=== PATIENT | female | born 1975 | race American Indian/Alaskan Native ===

== ENCOUNTER 2016-09-03 16:54 | Emergency (ER) | payer MEDICAID ==
[2016-09-03] MEDS ORDERED: KEPPRA 1,000 MG/NS 0.75% 100ML 1,000 MG/100 ML BAG IV ONE (20:29)
[2016-09-03] MEDS ORDERED: PERCOCET 5/325 PO ONE (20:33)
--- NOTE | 2016-09-03 20:37 | Emergency Department Report ---
HPI - General Chief Complaint: Seizure Time Seen by Provider: 09/03/16 20:20 - HPI HPI: This is a 40-year-old -[place] female presents to the emergency department from home through triage with complaint of a seizure last night and then again today. Patient also complains of severe bilateral knee pain as she has a history of bilateral knee replacement last month and says that she fell onto her knees outside of triage. The patient presents with elevated blood pressure but says she is taking medications for it. She is not currently on any seizure medications. The patient was recently admitted and discharged from [facility] for hypertensive issues along with bradycardia. She was discharged 6 days ago. Patient has a history of arthritis, hypertension, lupus. She is also complaining of some other chronic pains. ED Past Medical Hx - Past Medical History Hx Hypertension: Yes Hx Arthritis: Yes Additional medical history: LUPUS - Surgical History Hx Cholecystectomy: Yes Additional Surgical History: Gastric bypass, Hysterectomy. breast reduction - Social History Smoking Status: Current Every Day Smoker Substance Use Type: None - Medications Home Medications: Home Medications Medication Instructions Recorded Confirmed Last Taken Type Butalb/Acetamin/Caff 50-325-40 2 tab PO Q4H PRN #20 tablet 08/29/16 Unknown Rx [Fioricet] Famotidine [Pepcid] 20 mg PO BID #60 tablet 08/29/16 Unknown Rx Levofloxacin [Levaquin TAB] 750 mg PO Q24H #4 tablet 08/29/16 Unknown Rx Losartan [Cozaar] 25 mg PO QDAY #30 tablet 08/29/16 Unknown Rx NIFEdipine XL [Procardia Xl] 60 mg PO QDAY #30 tablet 08/29/16 Unknown Rx Oxycodone HCl/Acetaminophen 1 each PO Q6HR PRN #12 tablet 08/29/16 Unknown Rx [Percocet 7.5/325 mg] Sertraline [Zoloft] 50 mg PO QDAY #30 tablet 08/29/16 Unknown Rx predniSONE [Deltasone] 40 mg PO QDAY #60 tablet 08/29/16 Unknown Rx levETIRAcetam [Keppra TAB] 500 mg PO BID #60 tablet 09/04/16 Unknown Rx oxyCODONE /ACETAMINOPHEN [Percocet 1 tab PO Q6HR PRN #10 tablet 09/04/16 Unknown Rx 5/325] ED Review of Systems ROS: Stated complaint: HBP/LOW HEART RATE Other details as noted in HPI Comment: All other systems reviewed and negative Constitutional: denies: chills, fever Eyes: denies: eye pain, eye discharge, vision change ENT: denies: ear pain, throat pain Respiratory: denies: cough, shortness of breath, wheezing Cardiovascular: denies: chest pain, palpitations Gastrointestinal: denies: abdominal pain, nausea, diarrhea Genitourinary: denies: urgency, dysuria, discharge Musculoskeletal: arthralgia. denies: back pain Skin: denies: rash, lesions Neurological: headache, other (seizures). denies: numbness, paresthesias Physical Exam - Physical Exam Vital Signs: Vital Signs 09/03/16 17:13 Temperature 99.2 F Pulse Rate 100 H Respiratory 20 Rate Blood Pressure 160/116 O2 Sat by Pulse 100 Oximetry Physical Exam: GENERAL: The patient is well-developed well-nourished. Patient is awake and does not appear in any acute distress. HEENT: Normocephalic. Atraumatic. Extraocular motions are intact. Patient has moist mucous membranes. Pupils equal reactive to light bilaterally. No nystagmus. NECK: Supple. Trach is midline. CHEST/LUNGS: Clear to auscultation. There is no respiratory distress noted. HEART/CARDIOVASCULAR: Regular. There is no tachycardia. There is no gallop rub or murmur. ABDOMEN: Abdomen is soft, nontender. Patient has normal bowel sounds. There is no abdominal distention. SKIN: There is no rash. There is no edema. There is no diaphoresis. NEURO: The patient is awake, alert, and oriented. The patient is cooperative. The patient has no focal neurologic deficits. The patient has normal speech. Cranial nerves II through XII grossly intact. MUSCULOSKELETAL: There is tenderness to palpation to the bilateral knees but no obvious deformity. Negative anterior and posterior drawer test both knees. No laxity with valgus or varus stress. There is no limitation range of motion. ED Course Vital Signs 09/03/16 17:13 Temperature 99.2 F Pulse Rate 100 H Respiratory 20 Rate Blood Pressure 160/116 O2 Sat by Pulse 100 Oximetry ED Medical Decision Making - Lab Data Result diagrams: 09/03/16 20:39 09/03/16 20:39 - EKG Data -: EKG Interpreted by Me EKG shows normal: sinus rhythm, axis, intervals, QRS complexes (LVH), ST-T waves (T-wave inversions to the anterior leads) Rate: normal - EKG Data When compared to previous EKG there are: changes noted (previous EKG had marked sinus bradycardia) Interpretation: LVH, other (T-wave inversions to the anterior leads) - Radiology Data Radiology results: image reviewed interpreted by me: X-ray of the bilateral knees shows no fracture, dislocation or any acute process. - Medical Decision Making This is a 40-year-old female who presents to the emergency with complaint of a seizure the night prior to presentation and one the morning of presentation. She also says that she fell outside at triage and hit both her knees which had been half replaced the month prior. The patient's labs are mostly unremarkable except for a leukocytosis of 16,000. However the patient appears to have chronic elevation of white blood cell count is this is consistent with her previous visits. Her Depakote level was very low and subtherapeutic but the patient told me that she was stopped on the medication, despite what it says through the triage notes. I loaded the patient with some Keppra. She was given some of her pain from her knees and x-rays were done. There is no fracture, dislocation or any acute process. The patient was reevaluated multiple times for multiple hours and spent many hours in the emergency department without any further seizure-like activity. She did present with some very elevated blood pressure but came down to a reasonable level with one or 2 doses of antihypertensives and some pain control. The patient was often seen resting comfortably in the [facility] but continued to ask if she could be admitted solely for observational purposes. However the patient has a seizure history, and no further seizures today. She has access to a neurologist regarding her epilepsy. She has access to a orthopedist regarding her knee pain and she has a primary care physician. She was given something for pain and Keppra for seizures. She was having. She'll return to the emergency department with any further seizure-like activity or any worsening of her symptoms or any acute distress. Prior to discharge, the patient was seen ambulatory in the emergency department and appeared stable and doing so. The patient had a CT of the head within a week of this presentation and with only one seizure the day of presentation, I did not feel that further CT imaging of the head was necessary. Critical Care Time: No Critical care attestation.: If time is entered above; I have spent that time in minutes in the direct care of this critically ill patient, excluding procedure time. ED Disposition Clinical Impression: Arthralgia of both knees, Seizures Hypertension Qualifiers: Hypertension type: essential hypertension Qualified Code(s): I10 - Essential ( primary) hypertension Lupus Qualifiers: Systemic lupus erythematosus type: unspecified Systemic lupus erythematosus organ involvement: unspecified Qualified Code(s): M32.9 - Systemic lupus erythematosus, unspecified Fall Qualifiers: Encounter type: initial encounter Qualified Code(s): W19.XXXA - Unspecified fall, initial encounter Disposition: DISCHARGED TO HOME OR SELFCARE Is pt being admited?: No Condition: Stable Instructions: Epilepsy (ED), Hypertension (ED), Arthralgia (ED) Additional Instructions: Please follow-up with Dr. pSence in the next 1-2 days without fail. It is also recommended that she follow-up with your neurologist. It is recommended that she follow up with your orthopedist regarding your knee pain and recent fall. Return to the emergency department with any worsening of your symptoms or any acute distress. Try to stay away from foods that are high in salt caffeinated products to help with her blood pressure. You've been prescribed a medication that is sedating. Therefore this medication cannot be mixed with alcohol, or taken prior to driving, working, or being responsible for children. Prescriptions: levETIRAcetam [Keppra TAB] 500 mg PO BID #60 tablet oxyCODONE /ACETAMINOPHEN [Percocet 5/325] 1 tab PO Q6HR PRN #10 tablet PRN Reason: Pain Referrals: RIO SPENCE MD [Primary Care Provider] - [facility] Time of Disposition: 01:07
[2016-09-03 21:01] LABS: Basophils % (Auto) 0.4 % (0.0-1.8); Eosinophils % (Auto) 0.2 % (0.0-4.3); Hematocrit 48.2 % (30.3-42.9); Hemoglobin 15.2 gm/dl (10.1-14.3); Mean Corpuscular HGB Conc 32 % (30-34); Mean Corpuscular Hemoglobin 28 pg (28-32); Mean Corpuscular Volume 88 fl (79-97); Platelet Count 523 K/mm3 (140-440); Red Blood Count 5.46 M/mm3 (3.65-5.03); Red Cell Distribution Width 15.7 % (13.2-15.2); White Blood Count 16.3 K/mm3 (4.5-11.0)
[2016-09-03 21:20] LABS: Alanine Aminotransferase 23 units/L (7-56); Albumin/Globulin Ratio 1.6 %; Alkaline Phosphatase 110 units/L (35-129); Anion Gap 26 mmol/L; Blood Urea Nitrogen 9 mg/dL (7-17); Calcium 9.9 mg/dL (8.4-10.2); Carbon Dioxide 21 mmol/L (22-30); Chloride 101.2 mmol/L (98-107); Glucose 104 mg/dL (65-100); Potassium 3.8 mmol/L (3.6-5.0); Sodium 144 mmol/L (137-145); Total Protein 8.2 g/dL (6.3-8.2)
[2016-09-03] MEDS ORDERED: APRESOLINE IV ONE (21:55)
[2016-09-03] MEDS ORDERED: NORMODYNE IV ONE (22:56)
[2016-09-03] MEDS ORDERED: NACL 0.9% 1000 ML 1,000 ML IV ONE (22:56)
[2016-09-04] MEDS ORDERED: DILAUDID IV ONE (00:34)
--- NOTE | 2016-09-04 00:46 | XRay Report ---
FINAL REPORT PROCEDURE: XR KNEE BILAT 3V TECHNIQUE: Bilateral knee radiographs, AP, lateral and oblique views. CPT 41730 HISTORY: knee pain COMPARISON: No prior studies are available for comparison. FINDINGS: There are total knee joint replacements bilaterally. The femoral, tibial and patellar components of the prostheses are well seated bilaterally. No acute fracture or dislocation. Mild bilateral knee soft tissue swelling. IMPRESSION: Bilateral total knee joint replacements with the hardware appropriately positioned. Mild bilateral knee soft tissue swelling..
[2016-09-04] MEDS ORDERED: ZOFRAN IV ONE (01:45)
[2016-09-04 02:44] VITALS: BP 138/78
== END 2016-09-04 03:54 | disposition home or self-care (01) ==
LOC: ED 16:54
DX: R56.9 Unspecified convulsions (principal); M25.562 Pain in left knee; M25.561 Pain in right knee; I10 Essential (primary) hypertension; M32.9 Systemic lupus erythematosus, unspecified; F17.200 Nicotine dependence, unspecified, uncomplicated; Z90.49 Acquired absence of other specified parts of digestive tract; Z90.710 Acquired absence of both cervix and uterus; W18.39XA Other fall on same level, initial encounter; Y93.89 Activity, other specified; Y99.8 Other external cause status; Y92.89 Other specified places as the place of occurrence of the external cause
CPT/HCPCS: 36415; 73562; 80053; 80164; 82962; 84443; 84484; 85025; 93005; 93010; 96361; 96365; 96375; 99285; J0360; J1170; J1953; J2405; J7030

== ENCOUNTER 2016-11-03 15:10 | Emergency (ER) | payer SELFPAY ==
[2016-11-03 15:49] LABS: Basophils % (Auto) 0.5 % (0.0-1.8); Eosinophils % (Auto) 1.4 % (0.0-4.3); Hematocrit 38.3 % (30.3-42.9); Hemoglobin 12.1 gm/dl (10.1-14.3); Mean Corpuscular HGB Conc 32 % (30-34); Mean Corpuscular Hemoglobin 29 pg (28-32); Mean Corpuscular Volume 91 fl (79-97); Platelet Count 517 K/mm3 (140-440); Red Blood Count 4.23 M/mm3 (3.65-5.03); Red Cell Distribution Width 17.8 % (13.2-15.2); White Blood Count 13.6 K/mm3 (4.5-11.0)
[2016-11-03 16:05] LABS: Anion Gap 19 mmol/L; Blood Urea Nitrogen 8 mg/dL (7-17); Calcium 9.4 mg/dL (8.4-10.2); Carbon Dioxide 21 mmol/L (22-30); Chloride 104.5 mmol/L (98-107); Glucose 132 mg/dL (65-100); Potassium 4.4 mmol/L (3.6-5.0); Sodium 140 mmol/L (137-145)
--- NOTE | 2016-11-03 16:38 | Cat Scan Report ---
CRANIAL CT SCAN: Headaches. Serial contiguous axial images were obtained through the cranium. Intravenous contrast material was not administered. The ventricles are normal in size and appearance. There is no mass effect or midline shift. No areas of abnormally increased or decreased attenuation are seen. No mass lesion is seen. The mastoid air cells and visualized portions of the sinuses are normal. IMPRESSION: Cranial CT scan within normal limits.
--- NOTE | 2016-11-04 00:50 | Emergency Department Report ---
ED Chest Pain HPI - General Chief Complaint: Chest Pain Stated Complaint: CARDIOLOGY REFERRAL Time Seen by Provider: 11/04/16 00:22 Source: patient Mode of arrival: Ambulatory Limitations: No Limitations - History of Present Illness Initial Comments: 41-year-old female with a history of lupus and PE complains of chest pain and headache that started 2 days ago. She describes the pain in her chest as sharp and being worse with movement and worse with deep breath. She has some shortness of breath with the chest pain. She takes Xarelto daily. She denies fevers chills nausea vomiting. MD Complaint: chest pain -: days(s) Onset: during rest, during exertion Pain Location: left chest Pain Radiation: LUE Severity scale (0 -10): 9 Quality: sharp Consistency: intermittent Improves With: nothing Worsens With: nothing re: dyspnea. denies: nausea, vomting Other Symptoms: denies: cough, fever, syncope, rash - Related Data Home Medications Medication Instructions Recorded Confirmed Last Taken Venlafaxine [Effexor] 75 mg PO QID 10/14/16 11/04/16 Unknown Previous Rx's Medication Instructions Recorded Last Taken Type Famotidine [Pepcid] 20 mg PO BID #60 tablet 08/29/16 Unknown Rx Losartan [Cozaar] 25 mg PO QDAY #30 tablet 08/29/16 Unknown Rx NIFEdipine XL [Procardia Xl] 60 mg PO QDAY #30 tablet 08/29/16 Unknown Rx Sertraline [Zoloft] 50 mg PO QDAY #30 tablet 08/29/16 Unknown Rx predniSONE [Deltasone] 40 mg PO QDAY #60 tablet 08/29/16 Unknown Rx levETIRAcetam [Keppra TAB] 500 mg PO BID #60 tablet 09/04/16 Unknown Rx Carvedilol [Coreg] 6.25 mg PO BID #60 tablet 10/26/16 Unknown Rx Cephalexin [Keflex] 500 mg PO Q8HR 3 Days 10/26/16 Unknown Rx Meclizine [Antivert] 25 mg PO Q8H PRN #20 tablet 10/26/16 Unknown Rx Butalb/Acetamin/Caff 50-325-40 2 tab PO Q4H PRN #20 tablet 11/04/16 Unknown Rx [Fioricet] Oxycodone HCl/Acetaminophen 1 each PO Q6HR PRN #20 tablet 11/04/16 Unknown Rx [Percocet 10/325 mg] Allergies Allergy/AdvReac Type Severity Reaction Status Date / Time ketorolac tromethamine AdvReac Unknown Verified 09/20/14 22:39 [From Toradol] morphine AdvReac Unknown Verified 09/20/14 22:39 NSAIDS (Non-Steroidal AdvReac Unknown Verified 09/20/14 22:39 Anti-Inflamma Heart Score - HEART Score History: Moderately suspicious EKG: Normal Age: < 45 Risk factors: 1-2 risk factors Troponin: < normal limit HEART Score: 2 - Critical Actions Critical Actions: 0-3 pts:0.9-1.7%risk of adverse cardiac event.Candidate for discharge ED Review of Systems ROS: Stated complaint: CARDIOLOGY REFERRAL Other details as noted in HPI Comment: All other systems reviewed and negative ENT: denies: ear pain, throat pain Respiratory: orthopnea, shortness of breath Cardiovascular: chest pain. denies: palpitations, dyspnea on exertion Musculoskeletal: denies: back pain ED Past Medical Hx - Past Medical History Hx Hypertension: Yes Hx Heart Attack/AMI: No Hx Liver Disease: No Hx Arthritis: Yes Hx Seizures: Yes Hx Asthma: No Additional medical history: LUPUS, Bradycardia - Surgical History Hx Pacemaker: Yes (10/22/16, sick sinus syndrome, bradycardia, junctional rhythm) Hx Cholecystectomy: Yes Additional Surgical History: Gastric bypass, Hysterectomy. breast reduction , pace maker - Social History Smoking Status: Never Smoker Substance Use Type: None - Medications Home Medications: Home Medications Medication Instructions Recorded Confirmed Last Taken Type Famotidine [Pepcid] 20 mg PO BID #60 tablet 08/29/16 11/04/16 Unknown Rx Losartan [Cozaar] 25 mg PO QDAY #30 tablet 08/29/16 11/04/16 Unknown Rx NIFEdipine XL [Procardia Xl] 60 mg PO QDAY #30 tablet 08/29/16 11/04/16 Unknown Rx Sertraline [Zoloft] 50 mg PO QDAY #30 tablet 08/29/16 11/04/16 Unknown Rx predniSONE [Deltasone] 40 mg PO QDAY #60 tablet 08/29/16 11/04/16 Unknown Rx levETIRAcetam [Keppra TAB] 500 mg PO BID #60 tablet 09/04/16 11/04/16 Unknown Rx Venlafaxine [Effexor] 75 mg PO QID 10/14/16 11/04/16 Unknown History Carvedilol [Coreg] 6.25 mg PO BID #60 tablet 10/26/16 11/04/16 Unknown Rx Cephalexin [Keflex] 500 mg PO Q8HR 3 Days 10/26/16 11/04/16 Unknown Rx Meclizine [Antivert] 25 mg PO Q8H PRN #20 tablet 10/26/16 11/04/16 Unknown Rx Butalb/Acetamin/Caff 50-325-40 2 tab PO Q4H PRN #20 tablet 11/04/16 Unknown Rx [Fioricet] Oxycodone HCl/Acetaminophen 1 each PO Q6HR PRN #20 tablet 11/04/16 Unknown Rx [Percocet 10/325 mg] ED Physical Exam - General Limitations: No Limitations General appearance: alert, in no apparent distress - Head Head exam: Present: atraumatic, normocephalic - Eye Eye exam: Present: normal appearance - ENT ENT exam: Present: mucous membranes moist - Neck Neck exam: Present: normal inspection - Respiratory Respiratory exam: Present: normal lung sounds bilaterally. Absent: respiratory distress - Cardiovascular Cardiovascular Exam: Present: regular rate, normal rhythm, other (scar on anterior chest wall). Absent: systolic murmur, diastolic murmur, rubs, gallop - GI/Abdominal GI/Abdominal exam: Present: soft, normal bowel sounds - Extremities Exam Extremities exam: Present: normal inspection - Back Exam Back exam: Present: normal inspection - Neurological Exam Neurological exam: Present: alert, oriented X3 - Psychiatric Psychiatric exam: Present: normal affect, normal mood - Skin Skin exam: Present: warm, dry, intact, normal color. Absent: rash ED Course Vital Signs 11/03/16 11/03/16 11/03/16 15:16 19:37 23:58 Temperature 97.8 F Pulse Rate 103 H 99 H 90 Respiratory 20 20 Rate Blood Pressure 168/128 159/129 183/132 Blood Pressure [Left] O2 Sat by Pulse 97 98 100 Oximetry 11/04/16 11/04/16 01:22 02:01 Temperature Pulse Rate 76 82 Respiratory 16 16 Rate Blood Pressure Blood Pressure 174/111 188/123 [Left] O2 Sat by Pulse 96 96 Oximetry BLAKE score - Blake Score Age > 65: (0) No Aspirin use within the Past 7 Days: (0) No 3 or more CAD Risk Factors: (0) No 2 or more Angina events in past 24 hrs: (0) No Known CAD with more than 50% Stenosis: (0) No Elevated Cardiac Markers: (0) No ST Deviation Greater than 0.5mm: (0) No BLAKE Score: 0 ED Medical Decision Making - Lab Data Result diagrams: 11/03/16 15:32 11/03/16 15:32 Laboratory Results - last 24 hr 11/03/16 11/03/16 11/03/16 15:32 15:32 15:32 WBC 13.6 H RBC 4.23 Hgb 12.1 Hct 38.3 MCV 91 MCH 29 MCHC 32 RDW 17.8 H Plt Count 517 H Lymph % (Auto) 20.3 [place] % (Auto) 5.5 Eos % (Auto) 1.4 Baso % (Auto) 0.5 Lymph # 2.8 [place] # 0.8 Eos # 0.2 Baso # 0.1 Seg Neutrophils % 72.3 H Seg Neutrophils # 9.8 H D-Dimer 213.55 Sodium 140 Potassium 4.4 Chloride 104.5 Carbon Dioxide 21 L Anion Gap 19 BUN 8 Creatinine 0.8 Estimated GFR > 60 BUN/Creatinine Ratio 10.00 Glucose 132 H Calcium 9.4 Troponin T < 0.010 11/03/16 11/03/16 20:58 23:25 WBC RBC Hgb Hct MCV MCH MCHC RDW Plt Count Lymph % (Auto) [place] % (Auto) Eos % (Auto) Baso % (Auto) Lymph # [place] # Eos # Baso # Seg Neutrophils % Seg Neutrophils # D-Dimer Sodium Potassium Chloride Carbon Dioxide Anion Gap BUN Creatinine Estimated GFR BUN/Creatinine Ratio Glucose Calcium Troponin T < 0.010 < 0.010 - EKG Data 11/04/16 00:46 Sinus rate at 94 normal axis normal intervals and T-wave inversion in V2 no ST segment changes - Radiology Data interpreted by me: Chest x-ray without acute findings - Medical Decision Making Patient is a 41-year-old female with lupus and a history of PE here with chest pain worse with deep breath and with movement. She is an EKG that is not concerning for ischemia her chest x-ray is clear chest complains of a headache. Her neurological exam is unremarkable. Slight elevation in her white count which is likely related to her prednisone usage. Plan to treat pain and anticipate discharge. She has 2 negative troponins and a heart score places her low risk for ACS. Workup is negative here in the emergency department. Patient's pain improved with IV medications plan to discharge. Portions of this chart were dictated with dictation software. There may be dictation errors contained within this note. Critical care attestation.: If time is entered above; I have spent that time in minutes in the direct care of this critically ill patient, excluding procedure time. ED Disposition Clinical Impression: Chest pain, Headache Disposition: DC- TO HOME OR SELFCARE Is pt being admited?: No Condition: Stable Instructions: Chest Pain (ED), Acute Headache (ED) Additional Instructions: Follow-up with her primary care doctor. Prescriptions: Butalb/Acetamin/Caff 50-325-40 [Fioricet] 2 tab PO Q4H PRN #20 tablet PRN Reason: Headache Oxycodone HCl/Acetaminophen [Percocet 10/325 mg] 1 each PO Q6HR PRN #20 tablet PRN Reason: Pain Referrals: PRIMARY CARE, [Primary Care Provider] - 3-5 Days
[2016-11-04] MEDS ORDERED: DILAUDID IV ONE ×3 (00:52→04:46)
[2016-11-04] MEDS ORDERED: CATAPRES ONE (02:59)
[2016-11-04] MEDS ORDERED: CATAPRES PO ONE (03:02)
[2016-11-04] MEDS ORDERED: COREG PO ONE (04:45)
[2016-11-04 05:45] VITALS: BP 186/136
[2016-11-04] MEDS ORDERED: DILAUDID ONE (07:08)
--- NOTE | 2016-11-04 07:25 | XRay Report ---
Chest 2 views: Compared to 10/25/16. History: Chest pain. Findings: Normal cardiomediastinal silhouette great no consolidation, pneumothorax or pleural effusion. Stable pacemaker. Impression: No acute cardiopulmonary findings.
== END 2016-11-04 07:26 | disposition home or self-care (01) ==
LOC: ED 15:10
DX: R07.9 Chest pain, unspecified (principal); R51 Headache; I10 Essential (primary) hypertension; M19.90 Unspecified osteoarthritis, unspecified site; R56.9 Unspecified convulsions; Z95.818 Presence of other cardiac implants and grafts; Z88.8 Allergy status to other drugs, medicaments and biological substances
CPT/HCPCS: 36415; 70450; 71020; 80048; 84484; 85025; 85379; 93005; 93010; 96374; 96376; 99285; J1170

== ENCOUNTER 2016-12-27 15:35 | Emergency (ER) | payer MEDICAID ==
--- NOTE | 2016-12-27 16:02 | Emergency Department Report ---
Stated Complaint: LUPUS Time Seen by Provider: 12/27/16 15:59 - HPI History of Present Illness: PT c/o her entire body hurting. 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 No acute resp distress gcs 15 no focal weakness noted MSE screening note: Focused history and physical exam performed. Due to findings the following was ordered: labs ED Disposition for MSE Condition: Stable
[2016-12-27 16:50] LABS: Basophils % (Auto) 0.7 % (0.0-1.8); Eosinophils % (Auto) 0.4 % (0.0-4.3); Hematocrit 36.5 % (30.3-42.9); Hemoglobin 11.7 gm/dl (10.1-14.3); Mean Corpuscular HGB Conc 32 % (30-34); Mean Corpuscular Hemoglobin 29 pg (28-32); Mean Corpuscular Volume 92 fl (79-97); Platelet Count 443 K/mm3 (140-440); Red Blood Count 3.96 M/mm3 (3.65-5.03); Red Cell Distribution Width 16.3 % (13.2-15.2)
[2016-12-27 17:11] LABS: Alanine Aminotransferase 13 units/L (7-56); Albumin 4.3 g/dL (3.9-5); Albumin/Globulin Ratio 1.7 %; Alkaline Phosphatase 73 units/L (35-129); Anion Gap 20 mmol/L; Blood Urea Nitrogen 14 mg/dL (7-17); Calcium 9.6 mg/dL (8.4-10.2); Carbon Dioxide 23 mmol/L (22-30); Creatine Kinase 85 units/L (30-135); Glucose 95 mg/dL (65-100); Potassium 4.1 mmol/L (3.6-5.0); Sodium 144 mmol/L (137-145); Total Protein 6.9 g/dL (6.3-8.2)
[2016-12-28] MEDS ORDERED: CATAPRES PO ONE (06:49)
[2016-12-28] MEDS ORDERED: CATAPRES ONE (06:54)
[2016-12-28] MEDS ORDERED: PERCOCET 5/325 PO ONE (06:55)
[2016-12-28] MEDS ORDERED: DILAUDID IV ONE (07:57)
--- NOTE | 2016-12-28 07:59 | Cat Scan Report ---
CT OF THE ABDOMEN AND PELVIS WITHOUT CONTRAST HISTORY: Right flank pain. TECHNIQUE: Helical CT without contrast. Sagittal and coronal reformatted images. FINDINGS: Compared to the CT abdomen and pelvis with contrast dated 10/22/14. The kidneys ureters and bladder are unremarkable. No nephrolithiasis is appreciated. Pelvic phleboliths are noted. The gallbladder has been removed. There are surgical changes in the proximal stomach which are unremarkable. The liver, pancreas, spleen, adrenal glands, aorta, bowel loops and appendix are within normal limits. Hysterectomy changes are suspected. No ascites, adenopathy or inflammatory changes. The lung bases are clear. Normal heart size. No suspicious bony lesion. IMPRESSION: Unremarkable noncontrast CT of the abdomen and pelvis. Surgical changes as described. No clear explanation for right flank pain.
[2016-12-28] MEDS ORDERED: ZOFRAN IV ONE (08:15)
[2016-12-28] MEDS ORDERED: ZOFRAN ONE (08:19)
[2016-12-28 09:34] VITALS: BP 151/112
[2016-12-28 09:35] LABS: Bilirubin,Urine NEG (Negative); Blood,Urine NEG (Negative); Ketones,Urine TR mg/dL (Negative); Leukocyte Esterase,Urine NEG (Negative); Mucus,Urine FEW /HPF; Nitrite,Urine NEG (Negative); Protein,Urine <15 mg/dL mg/dL (Negative); WBC,Urine < 1.0 /HPF (0.0-6.0)
--- NOTE | 2016-12-28 09:37 | Emergency Department Report ---
HPI - General Chief Complaint: Pain General Time Seen by Provider: 12/27/16 15:59 - HPI HPI: Patient history of lupus, complains of pertinent joints. Patient also complained of burning in urination, and increased urinary frequency. Patient has a history also of high blood pressure, as well as noncompliance with medication. Denies chest pain shortness of breath. ED Past Medical Hx - Past Medical History Hx Hypertension: Yes Hx Heart Attack/AMI: No Hx Liver Disease: No Hx Arthritis: Yes Hx Seizures: Yes Hx Asthma: No Additional medical history: LUPUS, Bradycardia - Surgical History Past Surgical History?: Yes Hx Pacemaker: Yes (10/22/16, sick sinus syndrome, bradycardia, junctional rhythm) Hx Cholecystectomy: Yes Additional Surgical History: Gastric bypass, Hysterectomy. breast reduction , pace maker BILAT KNEE REPLACEMENT - Social History Smoking Status: Former Smoker Substance Use Type: None - Medications Home Medications: Home Medications Medication Instructions Recorded Confirmed Last Taken Type Famotidine [Pepcid] 20 mg PO BID #60 tablet 08/29/16 12/28/16 12/27/16 Rx Losartan [Cozaar] 25 mg PO QDAY #30 tablet 08/29/16 12/28/16 12/27/16 Rx NIFEdipine XL [Procardia Xl] 60 mg PO QDAY #30 tablet 08/29/16 12/28/16 Rx Sertraline [Zoloft] 50 mg PO QDAY #30 tablet 08/29/16 12/28/16 12/27/16 Rx Venlafaxine [Effexor] 75 mg PO QID 10/14/16 12/28/16 12/27/16 History Oxycodone HCl/Acetaminophen 1 each PO Q6HR PRN #20 tablet 11/04/16 12/28/16 Rx [Percocet 10/325 mg] Ciprofloxacin HCl [Ciprofloxacin 250 mg PO BID #14 tablet 12/28/16 Unknown Rx TAB] cloNIDine [Catapres] 0.1 mg PO Q4-6H PRN 12/28/16 12/28/16 Unknown History methylPREDNISolone [Medrol] 4 mg PO QAM #1 tab.ds.pk 12/28/16 Unknown Rx ED Review of Systems ROS: Stated complaint: LUPUS Other details as noted in HPI Comment: All other systems reviewed and negative Constitutional: no symptoms reported Respiratory: no symptoms reported Cardiovascular: as per HPI Musculoskeletal: arthralgia Physical Exam - Physical Exam Vital Signs: Vital Signs 12/27/16 12/28/16 12/28/16 15:58 04:07 04:16 Temperature 99.4 F Pulse Rate 94 H Respiratory 20 Rate Blood Pressure 166/119 170/117 170/117 O2 Sat by Pulse 99 100 100 Oximetry 12/28/16 12/28/16 12/28/16 04:18 04:30 04:46 Temperature Pulse Rate 68 Respiratory 16 Rate Blood Pressure 170/117 170/117 117/92 O2 Sat by Pulse 100 100 100 Oximetry 12/28/16 12/28/16 12/28/16 05:00 05:16 05:30 Temperature Pulse Rate Respiratory Rate Blood Pressure 117/92 177/103 177/103 O2 Sat by Pulse 100 100 99 Oximetry 12/28/16 12/28/16 12/28/16 05:46 06:00 06:16 Temperature Pulse Rate Respiratory Rate Blood Pressure 176/113 176/113 176/113 O2 Sat by Pulse 100 99 99 Oximetry 12/28/16 12/28/16 12/28/16 06:30 06:46 07:00 Temperature Pulse Rate 80 Respiratory 20 Rate Blood Pressure 176/113 187/115 187/115 O2 Sat by Pulse 100 99 100 Oximetry 12/28/16 12/28/16 12/28/16 07:38 07:44 07:45 Temperature Pulse Rate 76 Respiratory 18 Rate Blood Pressure 187/115 126/81 O2 Sat by Pulse 99 99 Oximetry 12/28/16 12/28/16 12/28/16 08:01 08:15 08:31 Temperature Pulse Rate Respiratory Rate Blood Pressure 189/122 189/122 103/53 O2 Sat by Pulse 98 94 98 Oximetry 12/28/16 12/28/16 08:45 09:01 Temperature Pulse Rate Respiratory Rate Blood Pressure 129/82 151/112 O2 Sat by Pulse 98 94 Oximetry Physical Exam: - General Limitations: No Limitations General appearance: alert, in no apparent distress - Head Head exam: Present: atraumatic, normocephalic - Eye Eye exam: Present: normal appearance - ENT ENT exam: Present: mucous membranes moist - Neck Neck exam: Present: normal inspection - Respiratory Respiratory exam: Present: normal lung sounds bilaterally. Absent: respiratory distress - Cardiovascular Cardiovascular Exam: Present: regular rate, normal rhythm. Absent: systolic murmur, diastolic murmur, rubs, gallop - GI/Abdominal GI/Abdominal exam: Present: soft, normal bowel sounds - Extremities Exam Extremities exam: Present: normal inspection - Back Exam Back exam: Present: normal inspection - Neurological Exam Neurological exam: Present: alert, oriented X3, CN II-XII intact - Psychiatric Psychiatric exam: Present:normal affect - Skin Skin exam: Present: warm, dry, intact, normal color. Absent: rash ED Course Vital Signs 12/27/16 12/28/16 12/28/16 15:58 04:07 04:16 Temperature 99.4 F Pulse Rate 94 H Respiratory 20 Rate Blood Pressure 166/119 170/117 170/117 O2 Sat by Pulse 99 100 100 Oximetry 12/28/16 12/28/16 12/28/16 04:18 04:30 04:46 Temperature Pulse Rate 68 Respiratory 16 Rate Blood Pressure 170/117 170/117 117/92 O2 Sat by Pulse 100 100 100 Oximetry 12/28/16 12/28/16 12/28/16 05:00 05:16 05:30 Temperature Pulse Rate Respiratory Rate Blood Pressure 117/92 177/103 177/103 O2 Sat by Pulse 100 100 99 Oximetry 12/28/16 12/28/16 12/28/16 05:46 06:00 06:16 Temperature Pulse Rate Respiratory Rate Blood Pressure 176/113 176/113 176/113 O2 Sat by Pulse 100 99 99 Oximetry 12/28/16 12/28/16 12/28/16 06:30 06:46 07:00 Temperature Pulse Rate 80 Respiratory 20 Rate Blood Pressure 176/113 187/115 187/115 O2 Sat by Pulse 100 99 100 Oximetry 12/28/16 12/28/16 12/28/16 07:38 07:44 07:45 Temperature Pulse Rate 76 Respiratory 18 Rate Blood Pressure 187/115 126/81 O2 Sat by Pulse 99 99 Oximetry 12/28/16 12/28/16 12/28/16 08:01 08:15 08:31 Temperature Pulse Rate Respiratory Rate Blood Pressure 189/122 189/122 103/53 O2 Sat by Pulse 98 94 98 Oximetry 12/28/16 12/28/16 08:45 09:01 Temperature Pulse Rate Respiratory Rate Blood Pressure 129/82 151/112 O2 Sat by Pulse 98 94 Oximetry ED Medical Decision Making - Lab Data Result diagrams: 12/27/16 16:16 12/27/16 16:16 Critical care attestation.: If time is entered above; I have spent that time in minutes in the direct care of this critically ill patient, excluding procedure time. ED Disposition Clinical Impression: Joint pain of leg Acute cystitis Qualifiers: Hematuria presence: without hematuria Qualified Code(s): N30.00 - Acute cystitis without hematuria Lupus Qualifiers: Systemic lupus erythematosus type: unspecified Systemic lupus erythematosus organ involvement: unspecified Qualified Code(s): M32.9 - Systemic lupus erythematosus, unspecified Disposition: - TO HOME OR SELFCARE Is pt being admited?: No Does the pt Need Aspirin: No Condition: Stable Prescriptions: Ciprofloxacin HCl [Ciprofloxacin TAB] 250 mg PO BID #14 tablet methylPREDNISolone [Medrol] 4 mg PO QAM #1 tab.ds.pk Referrals: MARINA ACKERMAN MD [Primary Care Provider] - 3-5 Days
== END 2016-12-28 09:59 | disposition home or self-care (01) ==
LOC: ED 15:35
DX: M32.9 Systemic lupus erythematosus, unspecified (principal); N30.00 Acute cystitis without hematuria; M25.50 Pain in unspecified joint; I10 Essential (primary) hypertension; M19.90 Unspecified osteoarthritis, unspecified site; I49.5 Sick sinus syndrome; Z95.0 Presence of cardiac pacemaker; Z87.891 Personal history of nicotine dependence
CPT/HCPCS: 36415; 74176; 80053; 81001; 82550; 85025; 96374; 96375; 99284; J1170; J2405; J2930

== ENCOUNTER 2017-04-24 15:02 | Emergency (ER) | payer MEDICAID ==
--- NOTE | 2017-04-24 16:05 | XRay Report ---
FINAL REPORT EXAM: XR CHEST ROUTINE 2V HISTORY: pacemaker, c/o left arm/chest pain TECHNIQUE: Chest two views PRIORS: Comparison is dated October 22, 2016 FINDINGS: Cardiac and mediastinal contours are unremarkable. Two lead pacemaker present lead wires intact. No focal pulmonary infiltrate identified. No pleural fluid collection seen. Pulmonary vasculature is. IMPRESSION: Pacemaker No acute abnormality identified in the chest
[2017-04-24 16:20] LABS: Anion Gap 21 mmol/L; BUN/Creatinine Ratio 17; Basophils % (Auto) 0.8 % (0.0-1.8); Blood Urea Nitrogen 10 mg/dL (7-17); Carbon Dioxide 26 mmol/L (22-30); Chloride 98.7 mmol/L (98-107); Glucose 81 mg/dL (65-100); Hemoglobin 12.9 gm/dl (10.1-14.3); Mean Corpuscular HGB Conc 34 % (30-34); Mean Corpuscular Hemoglobin 29 pg (28-32); Mean Corpuscular Volume 86 fl (79-97); Platelet Count 534 K/mm3 (140-440); Potassium 4.1 mmol/L (3.6-5.0); Red Blood Count 4.44 M/mm3 (3.65-5.03); Red Cell Distribution Width 15.6 % (13.2-15.2); Sodium 142 mmol/L (137-145); White Blood Count 10.8 K/mm3 (4.5-11.0)
[2017-04-24] MEDS ORDERED: DILAUDID IV ONE ×2 (16:33→17:44)
[2017-04-24] MEDS ORDERED: ZOFRAN IV ONE (16:34)
--- NOTE | 2017-04-24 16:36 | Emergency Department Report ---
HPI - General Chief Complaint: Extremity Problem,Nontraumatic Time Seen by Provider: 04/24/17 16:10 - HPI HPI: This is a 41 year-old female who presents to the emergency department with the complaint of a 3 day history of left shoulder pain circumferentially that feels like it has gotten worse. However the patient has not taken anything for her symptoms prior presentation. She denies any skin color change, swelling, trauma to the area. She denies any chest pain, shortness of breath, nausea, vomiting or fever. She has a past mental history of arthritis, lupus, hypertension. She has a pacemaker secondary to previous sick sinus syndrome and bradycardia. She has a surgical history of gastric bypass, hysterectomy, breast reduction and bilateral knee replacement. She has a primary care physician, Dr. Borja, as well as a java manager, but has not seen them regarding her symptoms. No recent travel or sick contacts at home. 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 breast reduction , pace maker BILAT KNEE REPLACEMENT - Social History Smoking Status: Current Every Day Smoker Substance Use Type: Prescribed - Medications Home Medications: Home Medications Medication Instructions Recorded Confirmed Last Taken Type Famotidine [Pepcid] 20 mg PO BID #60 tablet 08/29/16 12/28/16 12/27/16 Rx Losartan [Cozaar] 25 mg PO QDAY #30 tablet 08/29/16 12/28/16 12/27/16 Rx NIFEdipine XL [Procardia Xl] 60 mg PO QDAY #30 tablet 08/29/16 12/28/16 Rx Sertraline [Zoloft] 50 mg PO QDAY #30 tablet 08/29/16 12/28/16 12/27/16 Rx Venlafaxine [Effexor] 75 mg PO QID 10/14/16 12/28/16 12/27/16 History Oxycodone HCl/Acetaminophen 1 each PO Q6HR PRN #20 tablet 07/10/1612/28/16 Rx [Percocet 10/325 mg] Ciprofloxacin HCl [Ciprofloxacin 250 mg PO BID #14 tablet 12/28/16 Unknown Rx TAB] cloNIDine [Catapres] 0.1 mg PO Q4-6H PRN 12/28/16 12/28/16 Unknown History methylPREDNISolone [Medrol] 4 mg PO QAM #1 tab.ds.pk 12/28/16 Unknown Rx predniSONE [Deltasone] 20 mg PO QDAY #5 tab 04/24/17 Unknown Rx traMADol [Ultram] 50 mg PO Q6HR PRN #12 tablet 04/24/17 Unknown Rx ED Review of Systems ROS: Stated complaint: LEFT ARM PAIN Other details as noted in HPI Comment: All other systems reviewed and negative Constitutional: denies: chills, fever Eyes: denies: eye pain, eye discharge, vision change ENT: denies: ear pain, throat pain Respiratory: denies: cough, shortness of breath, wheezing Cardiovascular: denies: chest pain, palpitations Gastrointestinal: denies: abdominal pain, nausea, diarrhea Genitourinary: denies: urgency, dysuria, discharge Musculoskeletal: arthralgia. denies: joint swelling Skin: denies: rash, lesions Neurological: denies: headache, weakness, paresthesias Physical Exam - Physical Exam Vital Signs: Vital Signs 04/24/17 04/24/17 04/24/17 15:18 15:42 15:45 Temperature 98.2 F Pulse Rate 98 H 98 H 101 H Respiratory 18 12 15 Rate Blood Pressure 154/109 152/101 Blood Pressure [Left] O2 Sat by Pulse 99 Oximetry 04/24/17 04/24/17 15:51 15:52 Temperature 97.4 F L Pulse Rate 99 H Respiratory 14 13 Rate Blood Pressure Blood Pressure 148/103 [Left] O2 Sat by Pulse Oximetry Physical Exam: GENERAL: The patient is well-developed well-nourished. HENT: Normocephalic. Atraumatic. Patient has moist mucous membranes. EYES: Extraocular motions are intact. Pupils equal reactive to light bilaterally. NECK: Supple. Trachea is midline. CHEST/LUNGS: Clear to auscultation. There is no respiratory distress noted. HEART/CARDIOVASCULAR: Regular. There is no tachycardia. There is no murmur. ABDOMEN: Abdomen is soft, nontender. Patient has normal bowel sounds. There is no abdominal distention. SKIN: Skin is warm and dry. NEURO: The patient is awake, alert, and oriented. The patient is cooperative. The patient has no focal neurologic deficits. The patient has normal speech. MUSCULOSKELETAL: There is some reproducible tenderness to palpation to the superior and posterior left shoulder. No obvious deformity. There is no limitation range of motion. Radial pulse +2 over 4 bilaterally. Refill less than 2 seconds. There is no evidence of acute injury. ED Course Vital Signs 04/24/17 04/24/17 04/24/17 15:18 15:42 15:45 Temperature 98.2 F Pulse Rate 98 H 98 H 101 H Respiratory 18 12 15 Rate Blood Pressure 154/109 152/101 Blood Pressure [Left] O2 Sat by Pulse 99 Oximetry 04/24/17 04/24/17 15:51 15:52 Temperature 97.4 F L Pulse Rate 99 H Respiratory 14 13 Rate Blood Pressure Blood Pressure 148/103 [Left] O2 Sat by Pulse Oximetry ED Medical Decision Making - Lab Data Result diagrams: 04/24/17 15:52 04/24/17 15:52 - EKG Data -: EKG Interpreted by Me EKG shows normal: sinus rhythm, axis, intervals, QRS complexes, ST-T waves Rate: normal - EKG Data When compared to previous EKG there are: previous EKG unavailable Interpretation: normal EKG - Radiology Data Radiology results: image reviewed interpreted by me: Chest x-ray does not show any acute process. There are no pleural effusions, obvious pneumonia and there is no pneumothorax. - Medical Decision Making The patient presents with a few days of left shoulder pain and it is reproducible to palpation including over the trapezius muscle. Chest x-ray does not show any acute process. EKG does not show any signs of ST elevation [place] or dysrhythmia. Labs show negative troponins 2, no leukocytosis, normal CK level. Low suspicion for any type of cellulitis or septic arthritis. She has a low BLAKE score and low heart score. She is also low for the well's score criteria and negative on the pulmonary embolism rule out criteria. She does not have any complaints of actual chest pain or shortness of breath with this symptoms. She was given some pain medication and upon reevaluation she appears improved. Vital signs stable throughout her ED course. She has good follow-up with primary care and hematology. She will follow up with these physicians and return to the ER with any worsening of her symptoms or any acute distress. - Differential Diagnosis Lupus, fibromyalgia, arthritis, muscle spasm, bursitis, cellulitis, [place] Critical Care Time: No Critical care attestation.: If time is entered above; I have spent that time in minutes in the direct care of this critically ill patient, excluding procedure time. ED Disposition Clinical Impression: Lupus Qualifiers: Systemic lupus erythematosus type: unspecified Systemic lupus erythematosus organ involvement: unspecified Qualified Code(s): M32.9 - Systemic lupus erythematosus, unspecified Left shoulder pain Qualifiers: Chronicity: acute Qualified Code(s): M25.512 - Pain in left shoulder Arthralgia Qualifiers: Joint pain location: shoulder Laterality: left Qualified Code(s): M25.512 - Pain in left shoulder Disposition: DC-01 TO HOME OR SELFCARE Is pt being admited?: No Condition: Stable Instructions: Arthralgia (ED) Additional Instructions: Please follow-up with your primary care physician and your java manager as soon as possible. Return to the emergency Department with any worsening of her symptoms or any acute distress. You have been prescribed a medication that is sedating and therefore should not be taken prior to driving, working, and responsible for children and in no way should be mixed with alcohol of any quantity. Prescriptions: predniSONE [Deltasone] 20 mg PO QDAY #5 tab traMADol [Ultram] 50 mg PO Q6HR PRN #12 tablet PRN Reason: Pain Referrals: PRIMARY CARE, [Primary Care Provider] - [facility] Time of Disposition: 18:51
[2017-04-24 18:30] LABS: Creatine Kinase 68 units/L (30-135)
[2017-04-24 19:35] VITALS: BP 158/95
== END 2017-04-24 19:34 | disposition home or self-care (01) ==
LOC: ED 15:02
DX: M19.90 Unspecified osteoarthritis, unspecified site (principal); M32.9 Systemic lupus erythematosus, unspecified; I10 Essential (primary) hypertension; F17.200 Nicotine dependence, unspecified, uncomplicated
CPT/HCPCS: 36415; 71020; 80048; 82550; 84484; 85025; 93005; 93010; 96374; 96375; 96376; 99284; J1170; J2405; J2930

== ENCOUNTER 2017-04-28 12:48 | Emergency (ER) | payer MEDICAID ==
[2017-04-28 14:15] LABS: Basophils % (Auto) 0.3 % (0.0-1.8); Eosinophils # (Auto) 0.1 K/mm3 (0.0-0.4); Eosinophils % (Auto) 1.1 % (0.0-4.3); Hemoglobin 11.9 gm/dl (10.1-14.3); Lymphocytes # (Auto) 3.4 K/mm3 (1.2-5.4); Lymphocytes % (Auto) 32.3 % (13.4-35.0); Mean Corpuscular HGB Conc 32 % (30-34); Mean Corpuscular Hemoglobin 27 pg (28-32); Mean Corpuscular Volume 87 fl (79-97); Monocytes # (Auto) 0.7 K/mm3 (0.0-0.8); Monocytes % (Auto) 6.4 % (0.0-7.3); Platelet Count 498 K/mm3 (140-440); Red Blood Count 4.38 M/mm3 (3.65-5.03)
[2017-04-28 14:17] LABS: INR 0.95 (0.87-1.13)
--- NOTE | 2017-04-28 14:17 | Cat Scan Report ---
FINAL REPORT EXAM: CT HEAD/BRAIN WO CON HISTORY: neuro deficits < 6hrs or sx present upon awakening TECHNIQUE: CT of the head was performed without intravenous contrast. PRIORS: 08/26/2016. FINDINGS: The ventricles are normal in shape and position. The ventricles are nondilated. No intracranial hemorrhage, mass, mass effect, midline shift or evidence of acute ischemic infarct. The basilar cisterns are patent. The paranasal sinuses are clear. The extracranial soft tissues demonstrate no abnormality. The calvarium is intact. The orbits are intact. The mastoid air cells are clear. IMPRESSION: No acute intracranial abnormality.
[2017-04-28 14:18] LABS: Partial Thromboplastin Time 29.3 Sec. (24.2-36.6)
[2017-04-28 14:32] LABS: BUN/Creatinine Ratio 26; Blood Urea Nitrogen 13 mg/dL (7-17); Calcium 9.3 mg/dL (8.4-10.2); Hemolysis Index 13
[2017-04-29 00:27] VITALS: BP 145/115
[2017-04-29] MEDS ORDERED: DILAUDID IM STA (01:43)
--- NOTE | 2017-04-29 01:44 | Emergency Department Report ---
ED General Adult HPI - General Chief complaint: Neuro Symptoms/Deficit Stated complaint: LEFT ARM PAIN Time Seen by Provider: 04/29/17 01:43 Source: patient, RN notes reviewed, old records reviewed Mode of arrival: Ambulatory Limitations: No Limitations - History of Present Illness Initial comments: This is a 41-year-old female with a history of lupus and hypertension. Patient presents to the ER today with a complaint of left-sided shoulder pain that has no trauma. The pain starts in the left posterior scapula, radiates to the lateral deltoid. The pain is sharp and increases with palpation and range of motion. Patient also complains of "lupus pain", indicates that she has a bifrontal headache, dental pain, body pain, pain. To me she denies weakness, numbness, ataxia, facial droop, slurred speech. Her headache started 2 days ago , it is worse at night, gets better during the day, and waxes and wanes. Headache is not sudden or thunderclap in nature, and he did not respond intensity within an hour. Patient describes a worse headache a few years ago. Patient denies vomiting, denies abdominal pain. Her pain typically improves with rest and hydromorphone. -: Gradual, days(s) Location: left, upper extremity Severity scale (0 -10): 6 Quality: burning, aching Consistency: intermittent Improves with: medication, rest Worsens with: movement Associated Symptoms: loss of appetite, malaise. denies: confusion, chest pain, seizure, syncope - Related Data Home Medications Medication Instructions Recorded Confirmed Last Taken Venlafaxine [Effexor] 75 mg PO QID 10/14/16 12/28/16 12/27/16 cloNIDine [Catapres] 0.1 mg PO Q4-6H PRN 12/28/16 12/28/16 Unknown Previous Rx's Medication Instructions Recorded Last Taken Type Famotidine [Pepcid] 20 mg PO BID #60 tablet 08/29/16 12/27/16 Rx Losartan [Cozaar] 25 mg PO QDAY #30 tablet 08/29/16 12/27/16 Rx NIFEdipine XL [Procardia Xl] 60 mg PO QDAY #30 tablet 08/29/16 12/27/16 Rx Sertraline [Zoloft] 50 mg PO QDAY #30 tablet 08/29/16 12/27/16 Rx Oxycodone HCl/Acetaminophen 1 each PO Q6HR PRN #20 tablet 11/04/16 12/27/16 Rx [Percocet 10/325 mg] Ciprofloxacin HCl [Ciprofloxacin 250 mg PO BID #14 tablet 12/28/16 Unknown Rx TAB] methylPREDNISolone [Medrol] 4 mg PO QAM #1 tab.ds.pk 12/28/16 Unknown Rx HYDROcodone/APAP 5-325 [[place] 1 each PO Q6HR PRN #12 tablet 04/24/17 Unknown Rx 5/325] predniSONE [Deltasone] 20 mg PO QDAY #5 tab 04/24/17 Unknown Rx traMADol [Ultram] 50 mg PO Q6HR PRN #12 tablet 04/24/17 Unknown Rx Acetaminophen [Tylenol Arthritis] 650 mg PO Q6HR PRN #30 tablet.er 04/29/17 Unknown Rx Ondansetron [Zofran Odt] 4 mg PO Q8HR PRN #20 tab.rapdis 04/29/17 Unknown Rx Allergies Allergy/AdvReac Type Severity Reaction Status Date / Time ketorolac tromethamine AdvReac Unknown Verified 12/28/16 04:15 [From Toradol] morphine AdvReac Unknown Verified 12/28/16 04:15 NSAIDS (Non-Steroidal AdvReac Unknown Verified 12/28/16 04:15 Anti-Inflamma ED Review of Systems ROS: Stated complaint: LEFT ARM PAIN Other details as noted in HPI Constitutional: malaise. denies: fever Eyes: denies: eye discharge ENT: dental pain Respiratory: denies: cough Cardiovascular: denies: chest pain Gastrointestinal: denies: vomiting Genitourinary: as per HPI Musculoskeletal: back pain, arthralgia, myalgia Skin: denies: lesions Neurological: headache. 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 breast reduction , pace maker BIL[employer] REPLACEMENT - Social History Smoking Status: Current Every Day Smoker Substance Use Type: Alcohol, Prescribed - Medications Home Medications: Home Medications Medication Instructions Recorded Confirmed Last Taken Type Famotidine [Pepcid] 20 mg PO BID #60 tablet 08/29/16 12/28/16 12/27/16 Rx Losartan [Cozaar] 25 mg PO QDAY #30 tablet 08/29/16 12/28/16 12/27/16 Rx NIFEdipine XL [Procardia Xl] 60 mg PO QDAY #30 tablet 08/29/16 12/28/16 Rx Sertraline [Zoloft] 50 mg PO QDAY #30 tablet 08/29/16 12/28/16 12/27/16 Rx Venlafaxine [Effexor] 75 mg PO QID 10/14/16 12/28/16 12/27/16 History Oxycodone HCl/Acetaminophen 1 each PO Q6HR PRN #20 tablet 11/04/16 12/28/16 Rx [Percocet 10/325 mg] Ciprofloxacin HCl [Ciprofloxacin 250 mg PO BID #14 tablet 12/28/16 Unknown Rx TAB] cloNIDine [Catapres] 0.1 mg PO Q4-6H PRN 12/28/16 12/28/16 Unknown History methylPREDNISolone [Medrol] 4 mg PO QAM #1 tab.ds.pk 12/28/16 Unknown Rx HYDROcodone/APAP 5-325 [[place] 1 each PO Q6HR PRN #12 tablet 04/24/17 Unknown Rx 5/325] predniSONE [Deltasone] 20 mg PO QDAY #5 tab 04/24/17 Unknown Rx traMADol [Ultram] 50 mg PO Q6HR PRN #12 tablet 04/24/17 Unknown Rx Acetaminophen [Tylenol Arthritis] 650 mg PO Q6HR PRN #30 tablet.er 04/29/17 Unknown Rx Ondansetron [Zofran Odt] 4 mg PO Q8HR PRN #20 tab.rapdis 04/29/17 Unknown Rx ED Physical Exam - General Limitations: No Limitations General appearance: alert, in no apparent distress - Head Head exam: Present: atraumatic, normocephalic, other (patient has normal dentition with no trismus, stridor or malocclusion and no dental tenderness to percussion.) - Eye Eye exam: Present: normal appearance, PERRL, EOMI. Absent: nystagmus - ENT ENT exam: Present: normal exam, mucous membranes moist, normal external ear exam - Neck Neck exam: Present: normal inspection, tenderness (reproducible left-sided paracervical and trapezius tenderness.), full ROM - Respiratory Respiratory exam: Present: normal lung sounds bilaterally. Absent: respiratory distress - Cardiovascular Cardiovascular Exam: Present: regular rate, normal rhythm, normal heart sounds. Absent: systolic murmur, diastolic murmur, rubs, gallop - GI/Abdominal GI/Abdominal exam: Present: soft, normal bowel sounds. Absent: distended, tenderness, guarding, rebound, rigid, pulsatile mass - Extremities Exam Extremities exam: Present: normal inspection, full ROM, tenderness (the compartments are soft. Sensation intact to light touch in the bilateral deltoid , median, radial, ulnar distribution. There is reproducible left shoulder tenderness, however there is also diffuse muscular tenderness in the bilateral lower and upper extremities. The pelvis is stable, the compartments are soft, and there is no pain with passive range of motion of the digits in the upper or lower extremities. Patient has full active and passive range of motion of the bilateral wrists, bilateral elbows. Full active and passive range of motion of the right shoulder. Patient has limited passive range of motion to 90 abduction, of the left shoulder secondary to pain. However there is no redness , pus, streaking, crepitus.), normal capillary refill. Absent: pedal edema, joint swelling, calf tenderness - Back Exam Back exam: Present: normal inspection, full ROM, paraspinal tenderness - Neurological Exam Neurological exam: Present: alert, oriented X3, CN II-XII intact, normal gait, other (Extraocular movements intact. Tongue midline. No facial droop. Facial sensation intact to light touch in the V1, V2, V3 distribution bilaterally. 5 and 5 strength in 4 extremities.. Sensation is intact to light touch in 4 extremities.). Absent: motor sensory deficit - Psychiatric Psychiatric exam: Present: anxious - Skin Skin exam: Present: warm, dry, intact, normal color. Absent: rash ED Course Vital Signs 04/28/17 04/28/17 04/29/17 13:03 19:22 00:25 Temperature 98.6 F 98.6 F 97.2 F L Pulse Rate 88 87 112 H Respiratory 20 16 16 Rate Blood Pressure 176/120 169/116 145/115 O2 Sat by Pulse 100 97 99 Oximetry 04/29/17 02:22 Temperature Pulse Rate Respiratory 16 Rate Blood Pressure O2 Sat by Pulse Oximetry - Reevaluation(s) Reevaluation #1: 04/29/17 02:30 Headache is not historically consistent with subarachnoid hemorrhage In addition, patient makes no complaints of extremity weakness to me, and her examination does not suggest weakness either 04/29/17 02:32 Reevaluation #2: 04/29/17 02:34 Tachycardia resolved at the time of discharge. ED Medical Decision Making - Lab Data Result diagrams: 04/28/17 13:43 04/28/17 13:43 Vital Signs 04/28/17 04/28/17 04/29/17 13:03 19:22 00:25 Temperature 98.6 F 98.6 F 97.2 F L Pulse Rate 88 87 112 H Respiratory 20 16 16 Rate Blood Pressure 176/120 169/116 145/115 O2 Sat by Pulse 100 97 99 Oximetry 04/29/17 02:22 Temperature Pulse Rate Respiratory 16 Rate Blood Pressure O2 Sat by Pulse Oximetry Lab Results 04/28/17 04/28/17 04/28/17 Range/Units 13:43 13:43 13:43 WBC 10.6 (4.5-11.0) K/mm3 RBC 4.38 (3.65-5.03) M/mm3 Hgb 11.9 (10.1-14.3) gm/dl Hct 38.0 (30.3-42.9) % MCV 87 (79-97) fl MCH 27 L (28-32) pg MCHC 32 (30-34) % RDW 16.0 H (13.2-15.2) % Plt Count 498 H (140-440) K/mm3 Lymph % (Auto) 32.3 (13.4-35.0) % [place] % (Auto) 6.4 (0.0-7.3) % Eos % (Auto) 1.1 (0.0-4.3) % Baso % (Auto) 0.3 (0.0-1.8) % Lymph # 3.4 (1.2-5.4) K/mm3 [place] # 0.7 (0.0-0.8) K/mm3 Eos # 0.1 (0.0-0.4) K/mm3 Baso # 0.0 (0.0-0.1) K/mm3 Seg Neutrophils % 59.9 (40.0-70.0) % Seg Neutrophils # 6.4 (1.8-7.7) K/mm3 PT 13.2 (12.2-14.9) Sec. INR 0.95 (0.87-1.13) APTT 29.3 (24.2-36.6) Sec. Thrombin Time (15.1-19.6) Sec. Sodium 141 (137-145) mmol/L Potassium 4.5 (3.6-5.0) mmol/L Chloride 101.0 (98-107) mmol/L Carbon Dioxide 25 (22-30) mmol/L Anion Gap 20 mmol/L BUN 13 (7-17) mg/dL Creatinine 0.5 L (0.7-1.2) mg/dL Estimated GFR > 60 ml/min BUN/Creatinine Ratio 26 % Glucose 89 (65-100) mg/dL Calcium 9.3 (8.4-10.2) mg/dL Troponin T < 0.010 (0.00-0.029) ng/mL 04/28/17 Range/Units 13:43 WBC (4.5-11.0) K/mm3 RBC (3.65-5.03) M/mm3 Hgb (10.1-14.3) gm/dl Hct (30.3-42.9) % MCV (79-97) fl MCH (28-32) pg MCHC (30-34) % RDW (13.2-15.2) % Plt Count (140-440) K/mm3 Lymph % (Auto) (13.4-35.0) % [place] % (Auto) (0.0-7.3) % Eos % (Auto) (0.0-4.3) % Baso % (Auto) (0.0-1.8) % Lymph # (1.2-5.4) K/mm3 [place] # (0.0-0.8) K/mm3 Eos # (0.0-0.4) K/mm3 Baso # (0.0-0.1) K/mm3 Seg Neutrophils % (40.0-70.0) % Seg Neutrophils # (1.8-7.7) K/mm3 PT (12.2-14.9) Sec. INR (0.87-1.13) APTT (24.2-36.6) Sec. Thrombin Time 15.5 (15.1-19.6) Sec. Sodium (137-145) mmol/L Potassium (3.6-5.0) mmol/L Chloride (98-107) mmol/L Carbon Dioxide (22-30) mmol/L Anion Gap mmol/L BUN (7-17) mg/dL Creatinine (0.7-1.2) mg/dL Estimated GFR ml/min BUN/Creatinine Ratio % Glucose (65-100) mg/dL Calcium (8.4-10.2) mg/dL Troponin T (0.00-0.029) ng/mL - EKG Data -: EKG Interpreted by Me - EKG Data 04/29/17 02:28 Normal sinus, 78 bpm, normal axis, normal intervals, not morphologically consistent with ST elevation myocardial infarction - Radiology Data Radiology results: report reviewed, image reviewed Noncontrast CT scan of the brain is negative for acute disease - Medical Decision Making Differential diagnosis, including but not limited to: Polyarthritis, lupus flare , adhesive capsulitis, fibromyalgia storm, fibromyalgia flare/exacerbation Assessment and plan: 41-year-old female with complaint of headache, left shoulder pain that is reproducible, body pain, joint pain, myalgias and arthralgias. Her clinical history is not consistent with ischemic or hemorrhagic stroke, and her exam does not corroborate this either. Patient's exam does not appear to be consistent with septic arthritis; there is no redness, pus or streaking, she does have partial range of motion. However her range of motion improved with hydromorphone. Given the history and physical , think acute coronary syndrome is unlikely, her EKG was unremarkable today, had a negative troponin today, and was seen on April 24 for similar symptoms and also had negative troponins. Based on the clinical history, I find the patient to be low risk by BLAKE score, low risk by heart score. Symptoms present for days, therefore as per the [employer] clinical policy, myocardial infarction may be excluded with 1 set of troponins as symptoms have been present for greater than 8 hours. No evidence of pocket infection over the pacer. There does not appear to be an emergent medical condition at this time, the patient can follow up with outpatient pain management, or rheumatology. Critical care attestation.: If time is entered above; I have spent that time in minutes in the direct care of this critically ill patient, excluding procedure time. ED Disposition Clinical Impression: Left shoulder pain, Headache Disposition: TO HOME OR SELFCARE Is pt being admited?: No Does the pt Need Aspirin: No Condition: Stable Additional Instructions: Take the prescribed medications as needed/directed. If taking the acetaminophen for pain, do not combine for at least 4 hours with the Grove prescription that was given to a few days ago by the other ER physician. Rest and avoid heavy lifting and avoid strenuous physical activity, follow-up with the primary care doctor, administrative staff supervisor or pain specialist within the next 7-10 days. Return to the ER right away with new pain, worsening pain, migration of pain, fevers, chills, lethargy, irritability, projectile vomiting, change in mental status, confusion, inability tolerate liquid feeds, extremity weakness. Prescriptions: Acetaminophen [Tylenol Arthritis] 650 mg PO Q6HR PRN #30 tablet.er PRN Reason: Pain Ondansetron [Zofran Odt] 4 mg PO Q8HR PRN #20 tab.rapdis PRN Reason: Nausea Referrals: WILL TALAMANTES [Other] - 3-5 Days ALYCE BURTON MD [Staff Physician] - 3-5 Days
[2017-04-29] MEDS ORDERED: DILAUDID ONE (02:13)
[2017-04-29] MEDS ORDERED: ULTRAM PO ONE (02:58)
[2017-04-29] MEDS ORDERED: ULTRAM ONE (03:01)
--- NOTE | 2017-04-29 05:42 | XRay Report ---
FINAL REPORT EXAM: XR SHOULDER 2+V LT HISTORY: left shoudler pain COMPARISONS: None. FINDINGS: Three views left shoulder Left glenohumeral joint appears intact. 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 Acromioclavicular and coracoclavicular intervals are within normal limits. No displaced fracture. Incomplete evaluation of the adjacent left chest is remarkable for a pacemaker and no acute pulmonary finding. IMPRESSION: No acute findings. Left distal clavicular osteolysis is present, which is most commonly due to repetitive micro trauma/overuse. Differential diagnosis includes hyperparathyroidism and rheumatoid and psoriatic arthritis.
== END 2017-04-29 02:00 | disposition home or self-care (01) ==
LOC: ED 12:48
DX: M25.512 Pain in left shoulder (principal); R51 Headache; I10 Essential (primary) hypertension; M19.90 Unspecified osteoarthritis, unspecified site; F17.200 Nicotine dependence, unspecified, uncomplicated; Z90.49 Acquired absence of other specified parts of digestive tract; Z88.8 Allergy status to other drugs, medicaments and biological substances; Z88.5 Allergy status to narcotic agent
CPT/HCPCS: 36415; 70450; 73030; 80048; 82962; 84484; 85025; 85610; 85670; 85730; 93005; 93010; 96372; 99285; J1170

== ENCOUNTER 2017-08-01 09:50 | Emergency (ER) | payer MEDICAID ==
[2017-08-01] MEDS ORDERED: NORCO 7.5/325 PO ONE (12:23)
--- NOTE | 2017-08-01 12:23 | Emergency Department Report ---
Blank Doc - Documentation Documentation: Patient is a 41-year-old female who is presenting with right hip pain is radiating into the right lower extremity only down to the calf. Patient denies any trauma. Patient does have a history of lupus. Ultrasound of t lower extremity will be done to rule out DVT patient be given pain meds. Patient blood pressures elevated and was given a Catapres as well. He
[2017-08-01] MEDS ORDERED: CATAPRES PO ONE (12:24)
--- NOTE | 2017-08-01 13:07 | Emergency Department Report ---
ED Lower Extremity HPI - General Chief Complaint: Extremity Problem,Nontraumatic Stated Complaint: KNEE PAIN Time Seen by Provider: 08/01/17 12:16 Source: patient Mode of arrival: Ambulatory Limitations: No Limitations - History of Present Illness Initial Comments: This is a 41-year-old female nontoxic, well nourished in appearance, no acute signs of distress presents to the ED with c/o of right hip pain radiating to right lower extremity x3 days. Patient denies any trauma. Patient also stated has calf pain to right. Patient denies any numbness, tingling, fever, chills, headache, nausea, vomiting, chest pain, shortness of breathe. Patient denies any bladder or bowel instability. Patient stated has history of lupus, HTN, and liver disease. Patient stated allergies to Morhine, Toradol, and NSAIDs. MD Complaint: hip injury -: days(s) (3) Severity: mild Severity scale (0 -10): 8 Improves With: immobilization Worsens With: movement, palpation Associated Symptoms: ambulatory. denies: snap/pop sensation, swelling, numbness , tingling, unable to bear weight, able to partially bear weight - Related Data Home Medications Medication Instructions Recorded Confirmed Last Taken Venlafaxine [Effexor] 75 mg PO QID 10/14/16 12/28/16 12/27/16 cloNIDine [Catapres] 0.1 mg PO Q4-6H PRN 12/28/16 12/28/16 Unknown Previous Rx's Medication Instructions Recorded Last Taken Type Famotidine [Pepcid] 20 mg PO BID #60 tablet 08/29/16 12/27/16 Rx Losartan [Cozaar] 25 mg PO QDAY #30 tablet 08/29/16 12/27/16 Rx NIFEdipine XL [Procardia Xl] 60 mg PO QDAY #30 tablet 08/29/16 12/27/16 Rx Sertraline [Zoloft] 50 mg PO QDAY #30 tablet 08/29/16 12/27/16 Rx Oxycodone HCl/Acetaminophen 1 each PO Q6HR PRN #20 tablet 11/04/16 12/27/16 Rx [Percocet 10/325 mg] Ciprofloxacin HCl [Ciprofloxacin 250 mg PO BID #14 tablet 12/28/16 Unknown Rx TAB] methylPREDNISolone [Medrol] 4 mg PO QAM #1 tab.ds.pk 12/28/16 Unknown Rx HYDROcodone/APAP 5-325 [[place] 1 each PO Q6HR PRN #12 tablet 04/24/17 Unknown Rx 5/325] predniSONE [Deltasone] 20 mg PO QDAY #5 tab 04/24/17 Unknown Rx traMADol [Ultram] 50 mg PO Q6HR PRN #12 tablet 04/24/17 Unknown Rx Acetaminophen [Tylenol Arthritis] 650 mg PO Q6HR PRN #30 tablet.er 04/29/17 Unknown Rx Ondansetron [Zofran Odt] 4 mg PO Q8HR PRN #20 tab.rapdis 04/29/17 Unknown Rx HYDROcodone/APAP 7.5-325 [[place] 1 each PO Q8HR PRN #15 tablet 08/01/17 Unknown Rx 7.5/325] Prednisone [predniSONE 10 mg 10 mg PO .TAPER #1 tab.ds.pk 08/01/17 Unknown Rx (6-Day Pack, 21 Tabs)] Allergies Allergy/AdvReac Type Severity Reaction Status Date / Time ketorolac tromethamine AdvReac Unknown Verified 12/28/16 04:15 [From Toradol] morphine AdvReac Unknown Verified 12/28/16 04:15 NSAIDS (Non-Steroidal AdvReac Unknown Verified 12/28/16 04:15 Anti-Inflamma ED Review of Systems ROS: Stated complaint: KNEE PAIN Other details as noted in HPI Constitutional: denies: chills, fever Eyes: denies: eye pain, eye discharge, vision change ENT: denies: ear pain, throat pain Respiratory: denies: cough, shortness of breath, wheezing Cardiovascular: denies: chest pain, palpitations Endocrine: no symptoms reported Gastrointestinal: denies: abdominal pain, nausea, diarrhea Genitourinary: denies: urgency, dysuria, discharge Musculoskeletal: arthralgia. denies: back pain, joint swelling Skin: denies: rash, lesions Neurological: denies: headache, weakness, paresthesias Psychiatric: denies: anxiety, depression Hematological/Lymphatic: denies: easy bleeding, easy bruising ED Past Medical Hx - Past Medical History Hx Hypertension: Yes Hx Heart Attack/AMI: No Hx Liver Disease: No Hx Arthritis: Yes Hx Seizures: Yes Hx Asthma: No Additional medical history: LUPUS, Bradycardia - Surgical History Past Surgical History?: Yes Hx Pacemaker: Yes (10/22/16, sick sinus syndrome, bradycardia, junctional rhythm) Hx Cholecystectomy: Yes Additional Surgical History: Gastric bypass, Hysterectomy. breast reduction , pace maker BILAT KNEE REPLACEMENT - Social History Smoking Status: Never Smoker Substance Use Type: None - Medications Home Medications: Home Medications Medication Instructions Recorded Confirmed Last Taken Type Famotidine [Pepcid] 20 mg PO BID #60 tablet 08/29/16 12/28/16 12/27/16 Rx Losartan [Cozaar] 25 mg PO QDAY #30 tablet 08/29/16 12/28/16 12/27/16 Rx NIFEdipine XL [Procardia Xl] 60 mg PO QDAY #30 tablet 08/29/16 12/28/16 Rx Sertraline [Zoloft] 50 mg PO QDAY #30 tablet 08/29/16 12/28/16 12/27/16 Rx Venlafaxine [Effexor] 75 mg PO QID 10/14/16 12/28/16 12/27/16 History Oxycodone HCl/Acetaminophen 1 each PO Q6HR PRN #20 tablet 11/04/16 12/28/16 Rx [Percocet 10/325 mg] Ciprofloxacin HCl [Ciprofloxacin 250 mg PO BID #14 tablet 12/28/16 Unknown Rx TAB] cloNIDine [Catapres] 0.1 mg PO Q4-6H PRN 12/28/16 12/28/16 Unknown History methylPREDNISolone [Medrol] 4 mg PO QAM #1 tab.ds.pk 12/28/16 Unknown Rx HYDROcodone/APAP 5-325 [[place] 1 each PO Q6HR PRN #12 tablet 04/24/17 Unknown Rx 5/325] predniSONE [Deltasone] 20 mg PO QDAY #5 tab 04/24/17 Unknown Rx traMADol [Ultram] 50 mg PO Q6HR PRN #12 tablet 04/24/17 Unknown Rx Acetaminophen [Tylenol Arthritis] 650 mg PO Q6HR PRN #30 tablet.er 04/29/17 Unknown Rx Ondansetron [Zofran Odt] 4 mg PO Q8HR PRN #20 tab.rapdis 04/29/17 Unknown Rx HYDROcodone/APAP 7.5-325 [[place] 1 each PO Q8HR PRN #15 tablet 08/01/17 Unknown Rx 7.5/325] Prednisone [predniSONE 10 mg 10 mg PO .TAPER #1 tab.ds.pk 08/01/17 Unknown Rx (6-Day Pack, 21 Tabs)] ED Physical Exam - General Limitations: No Limitations General appearance: alert, in no apparent distress - Head Head exam: Present: atraumatic, normocephalic - Eye Eye exam: Present: normal appearance Pupils: Present: normal accommodation - ENT ENT exam: Present: normal exam, mucous membranes moist - Neck Neck exam: Present: normal inspection, full ROM. Absent: tenderness, meningismus - Respiratory Respiratory exam: Present: normal lung sounds bilaterally. Absent: respiratory distress, wheezes, rales, rhonchi, stridor, chest wall tenderness, accessory muscle use, decreased breath sounds, prolonged expiratory - Cardiovascular Cardiovascular Exam: Present: regular rate, normal rhythm, normal heart sounds. Absent: irregular rhythm, systolic murmur, diastolic murmur, rubs, gallop - GI/Abdominal GI/Abdominal exam: Present: soft, normal bowel sounds - Extremities Exam Extremities exam: Present: normal inspection, full ROM, normal capillary refill. Absent: tenderness, pedal edema, joint swelling, calf tenderness - Expanded Lower Extremity Exam Left Hip exam: Present: normal inspection, full ROM, tenderness, external rotation, internal rotation, pelvic stability. Absent: swelling, abrasion, laceration, ecchymosis, deformity, crepidus, dislocation, erythema, shortening Upper Leg exam: Present: normal inspection, full ROM. Absent: tenderness, swelling, abrasion, laceration, ecchymosis, deformity, crepidus, dislocation, erythema Knee exam: Present: normal inspection, full ROM, full knee extension. Absent: tenderness, abrasion, laceration, ecchymosis, deformity, crepidus, dislocation, erythema, effusion, pain w/ pronation/supination, posterior draw sign, pain/ laxity with valgus, pain/laxity with varus Lower Leg exam: Present: normal inspection, full ROM. Absent: tenderness, swelling, abrasion, laceration, ecchymosis, deformity, crepidus, dislocation, erythema, palpable cord, Moira's sign Ankle exam: Present: normal inspection, full ROM. Absent: tenderness, swelling , abrasion, laceration, ecchymosis, deformity, crepidus, dislocation, erythema, anterior draw sign Foot/Toe exam: Present: normal inspection, full ROM. Absent: tenderness, swelling, abrasion, laceration, ecchymosis, deformity, crepidus, dislocation, erythema, amputation, puncture wound, foreign body, calcaneal tenderness, tenderness at base of 5th metatarsal, nail avulsion, subungual hematoma Neuro vascular tendon exam: Present: no vascular compromise. Absent: pulse deficit, abnormal cap refill, motor deficit, sensory deficit, tendon deficit, extremity cold to touch, pallor, abnormal 2-point discrimination, decreased fine /light touch, foot drop, peroneal nerve deficit, significant pain with passive ROM of distal joint Gait: Positive: observed and normal - Back Exam Back exam: Present: normal inspection, full ROM, paraspinal tenderness (lumbar region). Absent: tenderness, CVA tenderness (R), CVA tenderness (L), muscle spasm, vertebral tenderness, rash noted - Expanded Back Exam Expanded Back exam: Absent: saddle anesthesia Back exam: Negative Straight Leg Raising: Left, Right - Neurological Exam Neurological exam: Present: alert, oriented X3 - Psychiatric Psychiatric exam: Present: normal affect, normal mood - Skin Skin exam: Present: warm, dry, intact, normal color. Absent: rash ED Course Vital Signs 08/01/17 08/01/17 08/01/17 11:37 12:28 13:41 Temperature 98.6 F Pulse Rate 106 H 80 Respiratory 16 18 16 Rate Blood Pressure 174/111 Blood Pressure 128/94 [Right] O2 Sat by Pulse 96 100 Oximetry - Reevaluation(s) Reevaluation #1: 08/01/17 13:11 Patient is speaking in full sentences with no signs of distress noted. - Consultations Consultation #1: 08/01/17 13:11 Patient has been consulted with Dr. Saldivar about patient history, physical exam , and labs and examined and screened patient and agrees to ED plan of care. ED Lower Extremity MDM - Medical Decision Making This is a 41-year-old female that presents with lumbar radiculopathy vs sciatica versus lupus flare. Patient is stable and was examined by me and Dr. Saldivar. US doppler obtained to r/u DVT/SVT with no evidence of this. Due to patient pointing to lumbar spine pain with radiating to posterior hip and lower extremity I believe this is sciatica vs. lupus flareup. Patient did receive [place] which patient stated symptoms are resolved and subsiding. There is no cauda equina syndrome. Patient is discharge with prednisone and Ultram for pain control. Patient also recevied Catapres in the ED. Vitals stable prior to discharge. Blood pressure decreased. Patient was instructed to Follow-up with a primary care doctor in 3-5 days or if symptoms worsen and continue return to emergency room as soon as possible. At time of discharge, the patient does not seem toxic or ill in appearance. No acute signs of distress noted. Patient agrees to discharge treatment plan of care. No further questions noted by the patient. Patient was also instructed not to operate any machinery after discharge due to drowsiness of [place]. Patient stated Ultram will not relieve the pain so I changed it to [place]. Critical care attestation.: If time is entered above; I have spent that time in minutes in the direct care of this critically ill patient, excluding procedure time. 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 Do not operate any machinery after discharge and when your taking Ultram due to drowiness. Prescriptions: HYDROcodone/APAP 7.5-325 [[place] 7.5/325] 1 each PO Q8HR PRN #15 tablet PRN Reason: Pain Prednisone [predniSONE 10 mg (6-Day Pack, 21 Tabs)] 10 mg PO .TAPER #1 tab.ds.pk Referrals: PRIMARY CARE, [Primary Care Provider] - 3-5 Days PEGGY ROLLINS MD [Staff Physician] - 3-5 Days [facility] [Outside] - 3-5 Days [facility] [Outside] - 3-5 Days Forms: Work/School Release Form(ED)
[2017-08-01] MEDS ORDERED: DECADRON IM ONE (13:29)
[2017-08-01 13:42] VITALS: BP 128/94
[2017-08-01] MEDS ORDERED: TYLENOL PO ONE (13:43)
== END 2017-08-01 13:51 | disposition home or self-care (01) ==
LOC: ED 09:50
DX: S76.011A Strain of muscle, fascia and tendon of right hip, initial encounter (principal); M54.16 Radiculopathy, lumbar region; M54.31 Sciatica, right side; L93.0 Discoid lupus erythematosus; I10 Essential (primary) hypertension; M19.90 Unspecified osteoarthritis, unspecified site; Z88.6 Allergy status to analgesic agent; Z88.5 Allergy status to narcotic agent; Z90.710 Acquired absence of both cervix and uterus; Z96.653 Presence of artificial knee joint, bilateral; Z98.84 Bariatric surgery status; Z95.0 Presence of cardiac pacemaker; Z90.49 Acquired absence of other specified parts of digestive tract; X58.XXXA Exposure to other specified factors, initial encounter; Y93.89 Activity, other specified; Y99.8 Other external cause status; Y92.89 Other specified places as the place of occurrence of the external cause
CPT/HCPCS: 93971; 96372; 99283; J1100

== ENCOUNTER 2017-09-17 05:22 | Emergency (ER) | payer MEDICAID ==
[2017-09-17 05:54] VITALS: BP 155/111
--- NOTE | 2017-09-17 06:46 | XRay Report ---
FINAL REPORT EXAM: XR HIP 2-3V RT HISTORY: hip pain RT COMPARISONS: None. FINDINGS: AP pelvis with frog-leg lateral view right hip Intact right hip joint. No fracture or gross malalignment. Spherical shape of the femoral heads is within normal limits. Hip joint spaces are within normal limits. No significant abnormality identified involving the sacroiliac joints or pubic symphysis. Surgical clips project over the right lower abdomen and hemipelvis. IMPRESSION: No acute or significant degenerative finding involving the right hip. Consider additional imaging for worsening/persistent symptoms.
--- NOTE | 2017-09-17 08:59 | Emergency Department Report ---
HPI - General Chief Complaint: Extremity Problem,Nontraumatic Time Seen by Provider: 09/17/17 08:57 - HPI HPI: Patient is a 41-year-old female who presents to ED complaining of right hip and leg pain 2 weeks. Patient states that the pain worsened today. Patient states she was taking some Tylenol which didn't help. Patient denies any trauma injuries or falls. Patient states pain is localized to her right hip. She denies fevers/chills/nausea or vomiting/back pain/shortness of breath/ dysuria/vaginal discharge or any other symptoms. 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 breast reduction , pace maker BILAT KNEE REPLACEMENT - Social History Smoking Status: Current Every Day Smoker Substance Use Type: None - Medications Home Medications: Home Medications Medication Instructions Recorded Confirmed Last Taken Type Famotidine [Pepcid] 20 mg PO BID #60 tablet 08/29/16 12/28/16 12/27/16 Rx Losartan [Cozaar] 25 mg PO QDAY #30 tablet 08/29/16 12/28/16 12/27/16 Rx NIFEdipine XL [Procardia Xl] 60 mg PO QDAY #30 tablet 08/29/16 12/28/16 Rx Sertraline [Zoloft] 50 mg PO QDAY #30 tablet 08/29/16 12/28/16 12/27/16 Rx Venlafaxine [Effexor] 75 mg PO QID 10/14/16 12/28/16 12/27/16 History Oxycodone HCl/Acetaminophen 1 each PO Q6HR PRN #20 tablet 11/04/16 12/28/16 Rx [Percocet 10/325 mg] Ciprofloxacin HCl [Ciprofloxacin 250 mg PO BID #14 tablet 12/28/16 Unknown Rx TAB] cloNIDine [Catapres] 0.1 mg PO Q4-6H PRN 08/29/17 08/29/17 Unknown History methylPREDNISolone [Medrol] 4 mg PO QAM #1 tab.ds.pk 12/28/16 Unknown Rx predniSONE [Deltasone] 20 mg PO QDAY #5 tab 04/24/17 Unknown Rx traMADol [Ultram] 50 mg PO Q6HR PRN #12 tablet 04/24/17 Unknown Rx Acetaminophen [Tylenol Arthritis] 650 mg PO Q6HR PRN #30 tablet.er 04/29/17 Unknown Rx Ondansetron [Zofran Odt] 4 mg PO Q8HR PRN #20 tab.rapdis 04/29/17 Unknown Rx HYDROcodone/APAP 7.5-325 [[place] 1 each PO Q8HR PRN #15 tablet 08/01/17 Unknown Rx 7.5/325] Prednisone [predniSONE 10 mg 10 mg PO .TAPER #1 tab.ds.pk 08/01/17 Unknown Rx (6-Day Pack, 21 Tabs)] Cyclobenzaprine [Flexeril] 10 mg PO QHS PRN #24 tablet 09/17/17 Unknown Rx HYDROcodone/APAP 5-325 [[place] 1 each PO Q6HR PRN #10 tablet 09/17/17 Unknown Rx 5-325 mg TAB] ED Review of Systems ROS: Stated complaint: PAIN RADIATE FROM HIP DOWN TO THE LEG AND PAIN Other details as noted in HPI Constitutional: denies: chills, fever Eyes: denies: eye pain, eye discharge, vision change ENT: denies: ear pain, throat pain Respiratory: denies: cough, shortness of breath, wheezing Cardiovascular: denies: chest pain, palpitations Endocrine: no symptoms reported Gastrointestinal: denies: abdominal pain, nausea, diarrhea Genitourinary: denies: urgency, dysuria, discharge Musculoskeletal: arthralgia, myalgia. denies: back pain, joint swelling Skin: denies: rash, lesions Neurological: denies: headache, weakness, numbness, paresthesias, confusion Psychiatric: denies: anxiety, depression, auditory hallucinations Hematological/Lymphatic: denies: easy bleeding, easy bruising Physical Exam - Physical Exam Vital Signs: Vital Signs 09/17/17 05:52 Temperature 98.6 F Pulse Rate 85 Respiratory 20 Rate Blood Pressure 155/111 [Right] O2 Sat by Pulse 98 Oximetry Physical Exam: GENERAL: Alert and oriented x3, no apparent distress, Normal Gait, atraumatic. HEAD: Head is normocephalic and a-traumatic. NECK: Supple. Non edematous, No lymphadenopathy or thyromegaly. No C-spine tenderness, full range of motion LUNGS: Symetrical with respiration, No wheezing, no rales or crackles, CTAB. HEART: S1, S2 present, regular rate and rhythm without murmur, no rubs, no gallops. Non tender to palpation BACK: Full range of motion, no spinal tenderness, Tenderness to palpation of the trapezius muscles and latissimus dorsi muscles of the back ABDOMEN: No organomegaly, masses, normal bowel sounds, nontender to palpation in all quadrants, NO CVA tenderness bilaterally EXTREMITIES/MUSCULOSKELETAL: No cyanosis, clubbing, rash, lesions or edema on bilateral hips and thighs and legs. Full ROM bilaterally. LE Pulses 2+ bilaterally. LE 5+ strength bilaterally, right hip nontender to palpation, straight leg raise negative bilaterally NEUROLOGIC: The patient is cooperative with no focal neurologic deficits. SKIN: Warm and dry, No lesions, No ulceration or induration present. ED Course Vital Signs 09/17/17 05:52 Temperature 98.6 F Pulse Rate 85 Respiratory 20 Rate Blood Pressure 155/111 [Right] O2 Sat by Pulse 98 Oximetry ED Medical Decision Making - Radiology Data Radiology results: report reviewed, image reviewed FINAL REPORT EXAM: XR HIP 2-3V RT HISTORY: hip pain RT COMPARISONS: None. FINDINGS: AP pelvis with frog-leg lateral view right hip Intact right hip joint. No fracture or gross malalignment. Spherical shape of the femoral heads is within normal limits. Hip joint spaces are within normal limits. No significant abnormality identified involving the sacroiliac joints or pubic symphysis. Surgical clips project over the right lower abdomen and hemipelvis. IMPRESSION: No acute or significant degenerative finding involving the right hip. Consider additional imaging for worsening/persistent symptoms. Transcribed By: MB Dictated By: IESHA VARGAS MD Electronically Authenticated By: IESHA VARGAS MD Signed Date/Time: 09/17/17 0641 - Medical Decision Making 41-year-old female presents with right hip pain ED course: Patient received pain medication X-rays of the right and left hip; shows no acute deformity, see report above I discussed this findings with the patient. I discussed with the patient that pain could be muscular or nerve related. I discussed the patient needs to follow-up with her primary care or orthopedic. Discussed the patient and I would give her both referrals and to follow-up. I discussed the patient has symptoms worsen she can return to ED otherwise follow-up Vital signs are normal, patient had no neuro deficit Patient is not in any acute or respiratory distress. Discussed the patient take Flexeril only at bedtime as it will makes her drowsy. Critical care attestation.: If time is entered above; I have spent that time in minutes in the direct care of this critically ill patient, excluding procedure time. ED Disposition Clinical Impression: Arthralgia of hip, right, Myalgia Disposition: TO HOME OR SELFCARE Is pt being admited?: No Does the pt Need Aspirin: No Condition: Stable Instructions: Trigger Point Pain (ED), Lumbar Radiculopathy (ED), Arthralgia ( ED) Additional Instructions: Make sure to follow up with the primary care physician as discussed. Take all your medications as you've been prescribed. If you have any worsening symptoms or develop new symptoms please return to ED immediately. Prescriptions: Cyclobenzaprine [Flexeril] 10 mg PO QHS PRN #24 tablet PRN Reason: Muscle Spasm HYDROcodone/APAP 5-325 [[place] 5-325 mg TAB] 1 each PO Q6HR PRN #10 tablet PRN Reason: Pain Referrals: Andi ACKERMAN [Other] - 3-5 Days [facility] [Outside] - 3-5 Days [facility] [Outside] - 3-5 Days ELISHA BUSTOS MD [Staff Physician] - 3-5 Days Forms: Accompanied Note, Work/School Release Form(ED) Time of Disposition: 09:40
[2017-09-17] MEDS ORDERED: NORCO 5/325 PO ONE (09:27)
[2017-09-17] MEDS ORDERED: DECADRON IM ONE (09:28)
[2017-09-17] MEDS ORDERED: NORCO 5/325 ONE (09:32)
[2017-09-17] MEDS ORDERED: DECADRON ONE (09:32)
== END 2017-09-17 10:10 | disposition home or self-care (01) ==
LOC: ED 05:22
DX: M25.551 Pain in right hip (principal); M79.1 Myalgia; I10 Essential (primary) hypertension; M19.90 Unspecified osteoarthritis, unspecified site; F17.200 Nicotine dependence, unspecified, uncomplicated; Z95.0 Presence of cardiac pacemaker; Z90.710 Acquired absence of both cervix and uterus
CPT/HCPCS: 73502; 96372; 99283; J1100

== ENCOUNTER 2017-12-17 16:38 | Emergency (ER) | payer MEDICAID ==
[2017-12-17 17:41] LABS: Basophils # (Auto) 0.1 K/mm3 (0.0-0.1); Basophils % (Auto) 0.9 % (0.0-1.8); Eosinophils # (Auto) 0.1 K/mm3 (0.0-0.4); Eosinophils % (Auto) 1.3 % (0.0-4.3); Hematocrit 33.3 % (30.3-42.9); Lymphocytes % (Auto) 37.7 % (13.4-35.0); Mean Corpuscular HGB Conc 33 % (30-34); Mean Corpuscular Hemoglobin 28 pg (28-32); Mean Corpuscular Volume 86 fl (79-97); Monocytes # (Auto) 0.6 K/mm3 (0.0-0.8); Monocytes % (Auto) 7.4 % (0.0-7.3); Platelet Count 427 K/mm3 (140-440); Red Blood Count 3.88 M/mm3 (3.65-5.03); Red Cell Distribution Width 17.2 % (13.2-15.2)
[2017-12-17 17:51] LABS: BUN/Creatinine Ratio 15; Blood Urea Nitrogen 9 mg/dL (7-17); Calcium 8.7 mg/dL (8.4-10.2); Hemolysis Index 4
[2017-12-17] MEDS ORDERED: ZOFRAN IV ONE (21:26)
[2017-12-17] MEDS ORDERED: SUBLIMAZE IV ONE (21:26)
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
--- NOTE | 2017-12-17 22:22 | XRay Report ---
FINAL REPORT PROCEDURE: XR CHEST 1V AP TECHNIQUE: Chest radiograph anteroposterior view. CPT 08536 HISTORY: right rib pain, sl decreased breath sounds on rt COMPARISON: 04/24/2017 FINDINGS: Heart: Normal. Mediastinum/Vessels: Normal. Lungs/Pleural space: Normal. Bony thorax: No acute osseous abnormality. Life support devices: A bipolar cardiac device is noted on the left side.. IMPRESSION: No acute cardiopulmonary abnormality.
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
[2017-12-17] MEDS ORDERED: NORCO 5/325 PO ONE (22:57)
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
[2017-12-18 01:04] VITALS: BP 121/75
== END 2017-12-18 01:03 | disposition home or self-care (01) ==
LOC: ED 16:38
DX: S40.011A Contusion of right shoulder, initial encounter (principal); S40.012A Contusion of left shoulder, initial encounter; S20.211A Contusion of right front wall of thorax, initial encounter; R07.89 Other chest pain; S09.90XA Unspecified injury of head, initial encounter; Y08.89XA Assault by other specified means, initial encounter; Y93.89 Activity, other specified; Y92.89 Other specified places as the place of occurrence of the external cause; Y99.8 Other external cause status
CPT/HCPCS: 36415; 70450; 71045; 71250; 72125; 73030; 73080; 80048; 84484; 85025; 93005; 93010; 96374; 96375; 99285; J2405; J3010

== ENCOUNTER 2017-12-27 01:52 | Emergency (ER) | payer MEDICAID ==
[2017-12-27] MEDS ORDERED: ASPIRIN PO ONE (03:15)
[2017-12-27 03:33] LABS: Basophils # (Auto) 0.1 K/mm3 (0.0-0.1); Eosinophils # (Auto) 0.1 K/mm3 (0.0-0.4); Eosinophils % (Auto) 0.5 % (0.0-4.3); Hematocrit 33.7 % (30.3-42.9); Hemoglobin 11.3 gm/dl (10.1-14.3); Lymphocytes # (Auto) 2.2 K/mm3 (1.2-5.4); Lymphocytes % (Auto) 21.5 % (13.4-35.0); Mean Corpuscular HGB Conc 34 % (30-34); Mean Corpuscular Hemoglobin 29 pg (28-32); Mean Corpuscular Volume 87 fl (79-97); Monocytes # (Auto) 0.8 K/mm3 (0.0-0.8); Monocytes % (Auto) 8.2 % (0.0-7.3); Platelet Count 503 K/mm3 (140-440); Red Blood Count 3.88 M/mm3 (3.65-5.03); Red Cell Distribution Width 17.9 % (13.2-15.2)
[2017-12-27 03:51] LABS: BUN/Creatinine Ratio 16; Blood Urea Nitrogen 8 mg/dL (7-17); Hemolysis Index 18
[2017-12-27] MEDS ORDERED: SOLU-Medrol IV ONE (15:19)
[2017-12-27] MEDS ORDERED: MORPHINE IV ONE (15:19)
[2017-12-27] MEDS ORDERED: NACL 0.9% 1000 ML 1,000 ML IV ONE (15:19)
[2017-12-27] MEDS ORDERED: ZOFRAN IV ONE (15:19)
--- NOTE | 2017-12-27 15:22 | XRay Report ---
AP CHEST: HISTORY: chest pain AP view of the chest demonstrates a normal mediastinal and cardiac contour with clear lungs and normal bony and soft tissue structures. 2-lead pacemaker device is unchanged in position since 12/17/17. IMPRESSION: Unremarkable AP chest.
--- NOTE | 2017-12-27 15:23 | Emergency Department Report ---
Blank Doc - Documentation Documentation: Patient presents to emergency department with complaint of diffuse body pain that she states is likely secondary to lupus. Patient's positive and joint pain and chest pain at the site of the defibrillator/pacemaker. Patient states around 2 AM last night she was getting out of bed because of the pain she was having she passed out. Physical exam the patient has no carotid bruits, regular rate and rhythm without murmurs or gallops. Patient's care will be turned over to the mid-level Provider with me available for consultation
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
[2017-12-27] MEDS ORDERED: APRESOLINE IV ONE (17:32)
[2017-12-27] MEDS ORDERED: PERCOCET 5/325 PO ONE (18:27)
[2017-12-27 18:30] VITALS: BP 173/112
--- NOTE | 2017-12-27 19:27 | Cat Scan Report ---
FINAL REPORT EXAM: CT HEAD/BRAIN WO CON HISTORY: vasovagal COMPARISON: CT of the head performed on 12/17/2017 TECHNIQUE: Multiple contiguous axial images were obtained from the skullbase the vertex without administration of IV contrast. FINDINGS: Brain volume is normal for age. No hemorrhage, mass, mass effect, or midline shift. Ventricles are not enlarged. Normal basal cisterns. No pathologic extra-axial fluid collection. No evidence of acute infarct. No skull fracture. Paranasal sinuses and mastoid air cells are clear. Bilateral orbits are grossly intact. IMPRESSION: No acute intracranial abnormality.
== END 2017-12-27 19:35 | disposition home or self-care (01) ==
LOC: ED 01:52
DX: R07.89 Other chest pain (principal); I10 Essential (primary) hypertension; R55 Syncope and collapse; M79.1 Myalgia; I00 Rheumatic fever without heart involvement; Z90.49 Acquired absence of other specified parts of digestive tract; Z90.710 Acquired absence of both cervix and uterus; Z44.8 Encounter for fitting and adjustment of other external prosthetic devices; Z79.899 Other long term (current) drug therapy; Z88.6 Allergy status to analgesic agent; Z88.8 Allergy status to other drugs, medicaments and biological substances
CPT/HCPCS: 36415; 70450; 71045; 80048; 84484; 84703; 85025; 93005; 93010; 96361; 96374; 96375; 99285; J0360; J2270; J2405; J2930; J7030

== ENCOUNTER → 2019-11-11 00:20 | Emergency (ER) | payer OTHER | END | disposition left against medical advice (07) | LOC: ED 00:20 | DX: F14.10 Cocaine abuse, uncomplicated (principal); Z53.21 Procedure and treatment not carried out due to patient leaving prior to being seen by health care provider ==

== ENCOUNTER 2020-10-02 20:27 | Emergency (ER) | payer MEDICAID ==
[2020-10-02 22:10] LABS: Basophils % (Auto) 0.3 % (0.0-1.8); Eosinophils # (Auto) 0.1 K/mm3 (0.0-0.4); Eosinophils % (Auto) 1.3 % (0.0-4.3); Hematocrit 35.6 % (30.3-42.9); Hemoglobin 11.7 gm/dl (10.1-14.3); Lymphocytes # (Auto) 2.3 K/mm3 (1.2-5.4); Mean Corpuscular HGB Conc 33 % (30-34); Mean Corpuscular Volume 86 fl (79-97); Monocytes # (Auto) 0.6 K/mm3 (0.0-0.8); Monocytes % (Auto) 9.6 % (0.0-7.3); Platelet Count 358 K/mm3 (140-440); Red Blood Count 4.15 M/mm3 (3.65-5.03); Red Cell Distribution Width 15.5 % (13.2-15.2)
[2020-10-02 22:25] LABS: Blood Urea Nitrogen 10 mg/dL (7-17); Calcium 8.2 mg/dL (8.4-10.2); Hemolysis Index 5
[2020-10-02 22:26] LABS: BUN/Creatinine Ratio 14
[2020-10-03] MEDS ORDERED: SODIUM CHLORIDE 0.9% 1000 ML 1,000 ML IV ONE (01:55)
[2020-10-03] MEDS ORDERED: ONDANSETRON 4 MG/2 ML INJ IV ONE (01:55)
--- NOTE | 2020-10-03 01:55 | Emergency Department Report ---
HPI - General Chief Complaint: Medical Clearance Time Seen by Provider: 10/03/20 01:16 - HPI HPI: This is a 45-year-old -[place] female presents to the emergency department for a medical clearance and secondary to heroin withdrawal. The patient says that she went to [facility] and was then brought over to [facility]. She says that she was at [facility] for about 1 hour before they sent her to the emergency department here for medical clearance. Patient says that she is experiencing generalized body aches, headache, nausea without vomit ing, abdominal cramping, and that the heroin withdrawal is exacerbating her lupus. She has not taken anything for symptoms prior to presentation. Patient also has a history of hypertension, rheumatoid arthritis, PUD and seizures. She denies any fever, shortness of breath, slurred speech, vision change, numbness or paresthesias, dysuria, vaginal bleeding or discharge. 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 breast reduction , pace maker [employer]IL[employer] REPLACEMENT - Social History Smoking Status: Current Some Day Smoker Substance Use Type: Heroin - Medications Home Medications: Home Medications Medication Instructions Recorded Confirmed Last Taken Type NIFEdipine XL [Procardia Xl] 60 mg PO QDAY #30 tablet 08/29/16 04/02/18 04/02/18 Rx Venlafaxine [Effexor] 150 mg PO DAILY 10/14/16 04/02/18 04/02/18 History Oxycodone HCl/Acetaminophen 1 each PO Q6HR PRN #20 tablet 11/04/16 04/02/18 04/02/18 Rx [Percocet 10/325 mg] cloNIDine [Catapres] 0.1 mg PO Q4-6H PRN 12/28/16 04/02/18 Unknown History ARIPiprazole [Abilify] 1 tab PO DAILY 04/02/18 04/02/18 04/02/18 History Gabapentin [Neurontin] 1 tab PO TID 04/02/18 04/02/18 04/02/18 History Hydroxychloroquine [Plaquenil] 1 tab PO DAILY 04/02/18 04/02/18 04/02/18 History Losartan [Cozaar] 25 mg PO BID 04/02/18 04/02/18 04/02/18 History Ondansetron [Zofran Odt] 4 mg PO Q8HR PRN #15 tab.rapdis 10/03/20 Unknown Rx ED Review of Systems ROS: Stated complaint: MEDICAL CLEARANCE Other details as noted in HPI Comment: All other systems reviewed and negative Constitutional: denies: chills, fever Eyes: denies: eye pain, vision change ENT: denies: ear pain, throat pain Respiratory: denies: cough, shortness of breath Cardiovascular: denies: palpitations, edema Gastrointestinal: abdominal pain, nausea. denies: vomiting Genitourinary: denies: dysuria, hematuria Musculoskeletal: back pain, myalgia. denies: joint swelling Skin: denies: rash, lesions Neurological: headache. denies: weakness, numbness, paresthesias Physical Exam - Physical Exam Vital Signs: Vital Signs 10/03/20 01:51 Temperature 98.6 F Pulse Rate 70 Respiratory 19 Rate Blood Pressure 100/61 [Right] O2 Sat by Pulse 100 Oximetry Physical Exam: GENERAL: The patient is well-developed well-nourished. HENT: Normocephalic. Atraumatic. Patient has moist mucous membranes. EYES: Extraocular motions are intact. NECK: Supple. Trachea is midline. CHEST/LUNGS: Clear to auscultation. There is no respiratory distress noted. HEART/CARDIOVASCULAR: Regular. There is no tachycardia. There is no murmur. ABDOMEN: Abdomen is soft, nontender. Patient has normal bowel sounds. There is no abdominal distention. SKIN: Skin is warm and dry. NEURO: The patient is awake, alert, and oriented. The patient is cooperative. The patient has no focal neurologic deficits. Normal speech. Cranial nerves II through XII grossly intact. MUSCULOSKELETAL: There is no tenderness or deformity. There is no limitation range of motion. ED Course Vital Signs 10/03/20 01:51 Temperature 98.6 F Pulse Rate 70 Respiratory 19 Rate Blood Pressure 100/61 [Right] O2 Sat by Pulse 100 Oximetry ED Medical Decision Making - Lab Data Result diagrams: 10/02/20 21:59 10/02/20 21:59 Lab Results 10/02/20 10/02/20 10/02/20 Range/Units 21:59 21:59 21:59 WBC (4.5-11.0) K/mm3 RBC (3.65-5.03) M/mm3 Hgb (10.1-14.3) gm/dl Hct (30.3-42.9) % MCV (79-97) fl MCH (28-32) pg MCHC (30-34) % RDW (13.2-15.2) % Plt Count (140-440) K/mm3 Lymph % (Auto) (13.4-35.0) % [place] % (Auto) (0.0-7.3) % Eos % (Auto) (0.0-4.3) % Baso % (Auto) (0.0-1.8) % Lymph # (Auto) (1.2-5.4) K/mm3 [place] # (Auto) (0.0-0.8) K/mm3 Eos # (Auto) (0.0-0.4) K/mm3 Baso # (Auto) (0.0-0.1) K/mm3 Seg Neutrophils % (40.0-70.0) % Seg Neutrophils # (1.8-7.7) K/mm3 Sodium 141 (137-145) mmol/L Potassium 4.0 (3.6-5.0) mmol/L Chloride 104.4 (98-107) mmol/L Carbon Dioxide 27 (22-30) mmol/L Anion Gap 14 mmol/L BUN 10 (7-17) mg/dL Creatinine 0.7 (0.6-1.2) mg/dL Estimated GFR > 60 ml/min BUN/Creatinine Ratio 14 % Glucose 74 (65-100) mg/dL Calcium 8.2 L (8.4-10.2) mg/dL Urine Color (Yellow) Urine Turbidity (Clear) Urine pH (5.0-7.0) Ur Specific [place] (1.003-1.030) Urine Protein (Negative) mg/dL Urine Glucose (UA) (Negative) mg/dL Urine Ketones (Negative) mg/dL Urine Blood (Negative) Urine Nitrite (Negative) Urine Bilirubin (Negative) Urine Urobilinogen (<2.0) mg/dL Ur Leukocyte Esterase (Negative) Urine WBC (Auto) (0.0-6.0) /HPF Urine RBC (Auto) (0.0-6.0) /HPF U Epithel Cells (Auto) (0-13.0) /HPF Urine Mucus /HPF Urine HCG, Qual (Negative) Salicylates < 0.3 L (2.8-20.0) mg/dL Urine Opiates Screen Urine Methadone Screen Acetaminophen 5.0 L (10.0-30.0) ug/mL Ur Barbiturates Screen Ur Phencyclidine Scrn Ur Amphetamines Screen U Benzodiazepines Scrn Urine Cocaine Screen U Marijuana (THC) Screen Drugs of Abuse Note Plasma/Serum Alcohol (0-0.07) % 10/02/20 10/02/20 10/03/20 Range/Units 21:59 21:59 04:02 WBC 6.2 (4.5-11.0) K/mm3 RBC 4.15 (3.65-5.03) M/mm3 Hgb 11.7 (10.1-14.3) gm/dl Hct 35.6 (30.3-42.9) % MCV 86 (79-97) fl MCH 28 (28-32) pg MCHC 33 (30-34) % RDW 15.5 H (13.2-15.2) % Plt Count 358 (140-440) K/mm3 Lymph % (Auto) 37.0 H (13.4-35.0) % [place] % (Auto) 9.6 H (0.0-7.3) % Eos % (Auto) 1.3 (0.0-4.3) % Baso % (Auto) 0.3 (0.0-1.8) % Lymph # (Auto) 2.3 (1.2-5.4) K/mm3 [place] # (Auto) 0.6 (0.0-0.8) K/mm3 Eos # (Auto) 0.1 (0.0-0.4) K/mm3 Baso # (Auto) 0.0 (0.0-0.1) K/mm3 Seg Neutrophils % 51.8 (40.0-70.0) % Seg Neutrophils # 3.2 (1.8-7.7) K/mm3 Sodium (137-145) mmol/L Potassium (3.6-5.0) mmol/L Chloride (98-107) mmol/L Carbon Dioxide (22-30) mmol/L Anion Gap mmol/L BUN (7-17) mg/dL Creatinine (0.6-1.2) mg/dL Estimated GFR ml/min BUN/Creatinine Ratio % Glucose (65-100) mg/dL Calcium (8.4-10.2) mg/dL Urine Color Yellow (Yellow) Urine Turbidity Cloudy (Clear) Urine pH 5.0 (5.0-7.0) Ur Specific [place] 1.026 (1.003-1.030) Urine Protein <15 mg/dl (Negative) mg/dL Urine Glucose (UA) Neg (Negative) mg/dL Urine Ketones Neg (Negative) mg/dL Urine Blood Neg (Negative) Urine Nitrite Neg (Negative) Urine Bilirubin Neg (Negative) Urine Urobilinogen 2.0 (<2.0) mg/dL Ur Leukocyte Esterase Neg (Negative) Urine WBC (Auto) 1.0 (0.0-6.0) /HPF Urine RBC (Auto) 3.0 (0.0-6.0) /HPF U Epithel Cells (Auto) 34.0 H (0-13.0) /HPF Urine Mucus 2+ /HPF Urine HCG, Qual (Negative) Salicylates (2.8-20.0) mg/dL Urine Opiates Screen Urine Methadone Screen Acetaminophen (10.0-30.0) ug/mL Ur Barbiturates Screen Ur Phencyclidine Scrn Ur Amphetamines Screen U Benzodiazepines Scrn Urine Cocaine Screen U Marijuana (THC) Screen Drugs of Abuse Note Plasma/Serum Alcohol < 0.01 (0-0.07) % 10/03/20 10/03/20 Range/Units 04:02 04:02 WBC (4.5-11.0) K/mm3 RBC (3.65-5.03) M/mm3 Hgb (10.1-14.3) gm/dl Hct (30.3-42.9) % MCV (79-97) fl MCH (28-32) pg MCHC (30-34) % RDW (13.2-15.2) % Plt Count (140-440) K/mm3 Lymph % (Auto) (13.4-35.0) % [place] % (Auto) (0.0-7.3) % Eos % (Auto) (0.0-4.3) % Baso % (Auto) (0.0-1.8) % Lymph # (Auto) (1.2-5.4) K/mm3 [place] # (Auto) (0.0-0.8) K/mm3 Eos # (Auto) (0.0-0.4) K/mm3 Baso # (Auto) (0.0-0.1) K/mm3 Seg Neutrophils % (40.0-70.0) % Seg Neutrophils # (1.8-7.7) K/mm3 Sodium (137-145) mmol/L Potassium (3.6-5.0) mmol/L Chloride (98-107) mmol/L Carbon Dioxide (22-30) mmol/L Anion Gap mmol/L BUN (7-17) mg/dL Creatinine (0.6-1.2) mg/dL Estimated GFR ml/min BUN/Creatinine Ratio % Glucose (65-100) mg/dL Calcium (8.4-10.2) mg/dL Urine Color (Yellow) Urine Turbidity (Clear) Urine pH (5.0-7.0) Ur Specific [place] (1.003-1.030) Urine Protein (Negative) mg/dL Urine Glucose (UA) (Negative) mg/dL Urine Ketones (Negative) mg/dL Urine Blood (Negative) Urine Nitrite (Negative) Urine Bilirubin (Negative) Urine Urobilinogen (<2.0) mg/dL Ur Leukocyte Esterase (Negative) Urine WBC (Auto) (0.0-6.0) /HPF Urine RBC (Auto) (0.0-6.0) /HPF U Epithel Cells (Auto) (0-13.0) /HPF Urine Mucus /HPF Urine HCG, Qual Negative (Negative) Salicylates (2.8-20.0) mg/dL Urine Opiates Screen Negative Urine Methadone Screen Negative Acetaminophen (10.0-30.0) ug/mL Ur Barbiturates Screen Negative Ur Phencyclidine Scrn Negative Ur Amphetamines Screen Negative U Benzodiazepines Scrn Positive Urine Cocaine Screen Positive U Marijuana (THC) Screen Positive Drugs of Abuse Note Disclamer Plasma/Serum Alcohol (0-0.07) % - Medical Decision Making This patient presents to the emergency department for a medical clearance so that she can go somewhere for drug detox/rehabilitation. Initially the patient says it was for heroin withdrawal. UDS did not show any evidence of opiates in her system, but did show benzodiazepines, cocaine and marijuana. The patient says that she was getting some type of treatment for withdrawal through [facility], which may be the reason for the positive benzodiazepines. Overall the patient does not appear in any acute distress. She does not appear to be having any significant drug or alcohol withdrawal. Vital signs have been reassuring throughout her ED course including being afebrile. The patient's labs have been mostly unremarkable including CBC, metabolic panel, blood alcohol level and urinalysis. She was given some IV fluid resuscitation and a dose of antiemetics. She was able to pass an oral challenge. Patient says that she is interested in going somewhere where she can be treated with either Suboxone or methadone. It does not appear that the patient was preaccepted to [facility]. The patient will be discharged to follow-up outpatient for substance abuse treatment. She can still attempt to go to [facility], but has also been given other outpatient substance treatment referrals. Critical Care Time: No Critical care attestation.: If time is entered above; I have spent that time in minutes in the direct care of this critically ill patient, excluding procedure time. ED Disposition Clinical Impression: Medical clearance for psychiatric admission, Cocaine use, Nausea Drug withdrawal Qualifiers: Substance type: cocaine Qualified Code(s): F14.23 - Cocaine dependence with withdrawal Lupus Qualifiers: Systemic lupus erythematosus type: unspecified Systemic lupus erythematosus organ involvement: unspecified Qualified Code(s): M32.9 - Systemic lupus erythematosus, unspecified Disposition: DC-01 TO HOME OR SELFCARE Is pt being admited?: No Condition: Stable Additional Instructions: We are contacting [facility] to see if you have been accepted for admission for your substance abuse history and detox/rehabilitation. If they are not the accepting facility, I have also given you a list of other drug rehabilitation facilities. Please avoid any further illicit drug use or alcohol use/abuse. Take all of your medications as prescribed. Please follow-up with your primary care physician in the next few days. Return to the emergency department with any worsening of your symptoms, new or concerning symptoms not addressed during this current emergency department visit, or with any acute distress. Prescriptions: Ondansetron [Zofran Odt] 4 mg PO Q8HR PRN #15 tab.rapdis PRN Reason: Nausea Referrals: LEROY ROCA MD [Primary Care Provider] - 2-3 Days Time of Disposition: 05:29
[2020-10-03 04:45] LABS: Amphetamine Screen,Urine Negative; Methadone Screen,Urine Negative; Opiate Screen,Urine Negative
[2020-10-03 04:47] LABS: Bilirubin,Urine NEG (Negative); Blood,Urine NEG (Negative); Color,Urine Yellow (Yellow); Mucus,Urine 2+ /HPF; Protein,Urine <15 mg/dL mg/dL (Negative)
[2020-10-03 04:54] LABS: HCG Qualitative,Urine Negative (Negative)
[2020-10-03 05:09] LABS: Benzodiazepines Screen,Urine Positive; Cannabinoid Screen,Urine Positive; Cocaine Screen,Urine Positive
[2020-10-03 06:18] VITALS: BP 131/78
== END 2020-10-03 06:17 | disposition home or self-care (01) ==
LOC: ED 20:27
DX: F14.23 Cocaine dependence with withdrawal (principal); M32.9 Systemic lupus erythematosus, unspecified; I10 Essential (primary) hypertension; F17.200 Nicotine dependence, unspecified, uncomplicated; M19.90 Unspecified osteoarthritis, unspecified site; Z90.49 Acquired absence of other specified parts of digestive tract; Z98.890 Other specified postprocedural states; Z79.899 Other long term (current) drug therapy; Z88.8 Allergy status to other drugs, medicaments and biological substances; Z86.69 Personal history of other diseases of the nervous system and sense organs; Z90.710 Acquired absence of both cervix and uterus; Z00.8 Encounter for other general examination
CPT/HCPCS: 36415; 80048; 80307; 81001; 81025; 85025; 96361; 96374; 99284; J2405; J7030; 80320; G0480